=== PATIENT | male | born 1985 | race Caucasian/White ===

== ENCOUNTER 2018-09-29 20:59 | Emergency (ER) | payer OTHER, MEDICAID, SELFPAY ==
[2018-09-29 21:08] VITALS: BP 139/107; PULSE 90; RESP 20; TEMP 36.6; O2SAT 100; BMI 23.0
--- NOTE | 2018-09-29 22:07 | DI.RAD.S_ITS ---
PROCEDURE: XR HAND RT MIN 3V INDICATIONS: deep lacerations, bony involvement? TECHNIQUE: Pre-views of the hand(s) acquired. COMPARISON: None. FINDINGS: Bones: No fractures or dislocations. Carpal bones are normally aligned. No suspicious bony lesions. Soft tissues: No suspicious soft tissue calcifications. Thin curvilinear metallic density foreign body noted in the dorsal and medial soft tissues of the distal left second finger adjacent to the second PIP joint. IMPRESSION: No fracture. No osseous lesion. If symptoms and/or clinical suspicion for pathology persists, further assessment with repeat radiographs (7-10 days) or advanced imaging (e.g. CT, MRI or bone scan) may be helpful. Dictated by: Alona Rodriguez MD, PhD on 09/30/2018 at 9:05 Approved by: Alona Rodriguez MD, PhD on 09/30/2018 at 9:06
[2018-09-29] MEDS: cephALEXin 250 MG PREPACK 1 BOTTLE MISC (22:44)
--- NOTE | 2018-09-29 22:48 | PC.NURSE ---
bulky dressing applied to stitches covering entire hand. Pt tolerated well without complaint. States pain is starting to come back.
[2018-09-29 23:21] VITALS: BP 124/80; PULSE 76; RESP 19; O2SAT 100
--- NOTE | 2018-09-29 23:31 | ED.WOUNDLAC ---
HPI - Wound/Laceration General Chief Complaint: Wound/Laceration Stated Complaint: RT HAND CUT - ALL 4 FINGERS Time Seen by Provider: 09/29/18 21:03 Source: patient and family Mode of arrival: ambulatory Limitations: no limitations History of Present Illness HPI narrative: 33-year-old male smoker, otherwise healthy with current tetanus presents with deep lacerations on the flexor surface 3rd 4th and 5th fingers of his right hand. He was using a brand-new serrated knife and it slipped and cut his hand. He has decreased strength with in the 4th and 5th finger as well as some tingling on the finger pads. His middle finger is also notably weaker he can move it. He denies other injury and is otherwise well and free of complaint Onset (ago): minute(s) Extremity Location: Right: hand Place: home Patient tetanus UTD: Yes Context: accidental Associated symptoms: pain, loss of feeling/numbness and unable to move injured part Treatments prior to arrival: bandage Related Data Previous Rx's Medication Instructions Recorded hydrocodone-acetaminophen [[place]] 1 tab PO QIDP PRN #40 tab 04/07/17 albuterol sulfate [Ventolin HFA] 0 INH SEE INSTRUCTIONS #1 ea 08/26/17 azithromycin [Zithromax Z-Subhash] 0 PO SEE INSTRUCTIONS #6 tab 08/26/17 cephalexin 500 mg PO QID 10 Days #40 cap 09/29/18 Review of Systems Review of Systems ROS Unobtainable: All systems reviewed & are unremarkable except as noted in HPI and below Constitutional Denies chills, Denies fever(s), Denies lethargy and Denies weakness Eyes Denies change in vision, Denies eye discharge, Denies irritation and Denies loss of vision ENT Ears, Nose, Mouth, and Throat: Denies change in voice, Denies neck pain and Denies sore throat Cardiovascular Denies chest pain, Denies irregular heart rhythm, Denies lightheadedness, Denies palpitations, Denies dyspnea, Denies dyspnea on exertion and Denies orthopnea Respiratory Denies cough, Denies dyspnea, Denies dyspnea on exertion and Denies wheezing Gastrointestinal Gastrointestinal: Denies abdominal pain, Denies change in bowel habits, Denies diarrhea, Denies nausea and Denies vomiting Genitourinary Denies hematuria, Denies flank pain, Denies urinary incontinence and Denies urinary urgency Musculoskeletal Reports limited range of motion and Denies neck pain Integumentary/Breasts Denies pruritus, Denies erythema, Denies rash and Reports wounds Neurologic Denies confusion, Denies loss of vision and Denies weakness Psychiatric Denies anxiety, Denies confusion, Denies depression, Denies homicidal ideation and Denies suicidal ideation Endocrine Denies palpitations Hematologic/Lymphatic Denies easy bruising Allergic/Immunologic Denies wheezing PFSH Social History Smoking Status: Current every day smoker Social History Smoking Status: Current every day smoker Exam Narrative Exam Narrative: GENERAL: 33-year-old male visibly upset and obviously uncomfortable HEAD: Atraumatic. Normocephalic. No temporal or scalp tenderness. EYES: Pupils equal round and reactive. Extraocular motions intact. No scleral icterus. No injection or drainage. ENT: Nose without bleeding, purulent drainage or septal hematoma. Throat without erythema, tonsillar hypertrophy or exudate. Uvula midline. Airway patent. NECK: Trachea midline. No JVD or lymphadenopathy. Supple, nontender, no meningeal signs. CARDIOVASCULAR: Regular rate and rhythm without murmurs, gallops, or rubs. RESPIRATORY: Clear to auscultation. Breath sounds equal bilaterally. No wheezes, rales, or rhonchi. GASTROINTESTINAL: Abdomen soft, non-tender, nondistended. No hepato-splenomegaly, or palpable masses. No guarding. EXTREMITIES: Multiple deep lacerations on the volar aspect of 3rd 4th and 5th fingers of right hand. In all scenarios the lacerations are approximately 1.5 cm across and D, they are at or proximal to the DI PE. Fifth finger laceration is viewed in a bloodless field and a complete laceration of flexor tendon is noted. minimal active bleeding. Fourth finger has a very similar wound with dimensions as stated above. Also viewed in a bloodless field and no tendon glide noted. middle fingers much more difficult to view the whole wound but patient still has markedly decreased strength on flexion of the finger No clubbing, cyanosis, or edema. No joint tenderness, effusion, or edema noted. BACK: Nontender without deformity or crepitance. No flank tenderness. NEURO: AOx3. SKIN: No rash or erythema. Initial Vital Signs Initial Vital Signs: Vital Signs Temperature 97.9 F 09/29/18 21:08 Pulse Rate 90 09/29/18 21:08 Respiratory Rate 20 09/29/18 21:08 Blood Pressure 139/107 H 09/29/18 21:08 Pulse Oximetry 100 09/29/18 21:08 Procedures Laceration Repair Laceration 1: Site: hand (fifth finger) Side (If applicable): right Size (cm): 1.5 Description: linear Depth: involves muscle layer and involves tendon Pre-repair: wound explored, irrigated extensively and deep structures intact (tendon lac) Number of sutures: 4 Laceration 2: Site: hand (fourth finger) Side (If applicable): right Size (cm): 1.5 Description: linear Depth: involves muscle layer and involves tendon Pre-repair: wound explored, irrigated extensively and deep structures intact (tendon lac) Skin layer closed with: nylon Size (cm): 5-0 Number of sutures: 4 Laceration 3: Site: hand (middle finger) Side (If applicable): right Size (cm): 1.5 Description: linear Depth: involves muscle layer Pre-repair: wound explored and irrigated extensively Skin layer closed with: nylon Size (cm): 5-0 Number of sutures: 3 Nerve Block Nerve Block 1: Time out performed: No Local Anesthetic: lidocaine 1% and bupivacaine 0.25% Amount of anesthesia used (mL): 3 Side: right Nerve Blocks: digital Procedure Successful: Yes Patient Tolerated Procedure: Well Additional Comments: This same procedure performed on 3rd 4th and 5th fingers of the right hand Orthopedic Splinting/Casting Injury #1: Side: right Upper Extremity Injury Location: hand Upper Extremity Immobilizer: volar splint and finger (other) Post splinting neuro exam: no change Post splinting vascular exam: no change Placed by: Nursing Course Orders Ordered: Discontinued Medications Hydrocodone Bitart/Acetaminophen (Vicodin Prepack) 1 bottle MISC SEEINSTR ONE Stop: 09/29/18 23:36 Last Admin: 09/29/18 23:41 Dose: 1 bottle Cefazolin Sodium (Keflex) 1 bottle MISC SEEINSTR ONE Stop: 09/29/18 22:19 Last Admin: 09/29/18 22:44 Dose: 1 1000units Consultations Consultation #1: call to [facility]. No hand call until at least next week. call to [facility]. Same orthopedist covers hand call to [facility]. No hand call today, but they are available tomorrow call to [facility]. Hand specialist is contacted, happy with our work and will reach out to patient tomorrow for surgery within 5 days. Vital Signs - 8 hr 09/29/18 21:08 09/29/18 23:21 Temperature 97.9 F Pulse Rate 90 76 Respiratory Rate 20 19 Blood Pressure 139/107 H Blood Pressure [Left Arm] 124/80 Pulse Oximetry 100 100 Discharge Plan Departure Patient Disposition: Home Clinical Impression: Flexor tendon laceration of finger with open wound Qualifiers: Encounter type: initial encounter Qualified Code(s): S56.129A - Laceration of flexor muscle, fascia and tendon of unspecified finger at forearm level, initial encounter Discharge Date/Time: 09/29/18 23:50 Interventions: ED Discharge Assessment Last Done: 09/29/18 23:49 Instructions: DI for Finger Flexor Tendon Injury Activity Restrictions/Additional Instructions: *You have been diagnosed with [deep laceration of fingers of the right hand with tendon involvement] *What to do: *Take medications as directed *I spoke with a hand surgeon (Dr. Lewis) about your injury tonight. He said someone from his office will call you tomorrow. If you don't hear from them by lunch you can call the office at [phone]. *Return to ER if you should have any new, worsening or concerning symptoms *Keep your dressing clean and dry Prescriptions: New cephalexin 500 mg capsule 500 mg PO QID 10 Days Qty: 40 RF: 0 No Action hydrocodone-acetaminophen [[place]] 5 MG/325 MG tablet 1 tab PO QIDP PRNQty: 40 RF: 0 azithromycin [Zithromax Z-Subhash] 250 MG tablet PO SEE INSTRUCTIONS Qty: 6 RF: 0 albuterol sulfate [Ventolin HFA] 90 MCG/PUFF HFA aerosol inhaler INH SEE INSTRUCTIONS Qty: 1 RF: 1
--- NOTE | 2018-09-29 23:34 | ED_ITS ---
HPI - Wound/Laceration General Chief Complaint: Wound/Laceration Stated Complaint: RT HAND CUT - ALL 4 FINGERS Time Seen by Provider: 09/29/18 21:03 Source: patient and family Mode of arrival: ambulatory Limitations: no limitations History of Present Illness HPI narrative: 33-year-old male smoker, otherwise healthy with current tetanus presents with deep lacerations on the flexor surface 3rd 4th and 5th fingers of his right hand. He was using a brand-new serrated knife and it slipped and cut his hand. He has decreased strength with in the 4th and 5th finger as well as some tingling on the finger pads. His middle finger is also notably weaker he can move it. He denies other injury and is otherwise well and free of complaint Onset (ago): minute(s) Extremity Location: Right: hand Place: home Patient tetanus UTD: Yes Context: accidental Associated symptoms: pain, loss of feeling/numbness and unable to move injured part Treatments prior to arrival: bandage Related Data Previous Rx's Medication Instructions Recorded hydrocodone-acetaminophen [[place]] 1 tab PO QIDP PRN #40 tab 04/07/17 albuterol sulfate [Ventolin HFA] 0 INH SEE INSTRUCTIONS #1 ea 08/26/17 azithromycin [Zithromax Z-Subhash] 0 PO SEE INSTRUCTIONS #6 tab 08/26/17 cephalexin 500 mg PO QID 10 Days #40 cap 09/29/18 Review of Systems Review of Systems ROS Unobtainable: All systems reviewed & are unremarkable except as noted in HPI and below Constitutional Denies chills, Denies fever(s), Denies lethargy and Denies weakness Eyes Denies change in vision, Denies eye discharge, Denies irritation and Denies loss of vision ENT Ears, Nose, Mouth, and Throat: Denies change in voice, Denies neck pain and Denies sore throat Cardiovascular Denies chest pain, Denies irregular heart rhythm, Denies lightheadedness, Denies palpitations, Denies dyspnea, Denies dyspnea on exertion and Denies orthopnea Respiratory Denies cough, Denies dyspnea, Denies dyspnea on exertion and Denies wheezing Gastrointestinal Gastrointestinal: Denies abdominal pain, Denies change in bowel habits, Denies diarrhea, Denies nausea and Denies vomiting Genitourinary Denies hematuria, Denies flank pain, Denies urinary incontinence and Denies urinary urgency Musculoskeletal Reports limited range of motion and Denies neck pain Integumentary/Breasts Denies pruritus, Denies erythema, Denies rash and Reports wounds Neurologic Denies confusion, Denies loss of vision and Denies weakness Psychiatric Denies anxiety, Denies confusion, Denies depression, Denies homicidal ideation and Denies suicidal ideation Endocrine Denies palpitations Hematologic/Lymphatic Denies easy bruising Allergic/Immunologic Denies wheezing PFSH Social History Smoking Status: Current every day smoker Social History Smoking Status: Current every day smoker Exam Narrative Exam Narrative: GENERAL: 33-year-old male visibly upset and obviously uncomfortable HEAD: Atraumatic. Normocephalic. No temporal or scalp tenderness. EYES: Pupils equal round and reactive. Extraocular motions intact. No scleral icterus. No injection or drainage. ENT: Nose without bleeding, purulent drainage or septal hematoma. Throat without erythema, tonsillar hypertrophy or exudate. Uvula midline. Airway patent. NECK: Trachea midline. No JVD or lymphadenopathy. Supple, nontender, no meningeal signs. CARDIOVASCULAR: Regular rate and rhythm without murmurs, gallops, or rubs. RESPIRATORY: Clear to auscultation. Breath sounds equal bilaterally. No wheezes, rales, or rhonchi. GASTROINTESTINAL: Abdomen soft, non-tender, nondistended. No hepato- splenomegaly, or palpable masses. No guarding. EXTREMITIES: Multiple deep lacerations on the volar aspect of 3rd 4th and 5th fingers of right hand. In all scenarios the lacerations are approximately 1.5 cm across and D, they are at or proximal to the DI PE. Fifth finger laceration is viewed in a bloodless field and a complete laceration of flexor tendon is noted. minimal active bleeding. Fourth finger has a very similar wound with dimensions as stated above. Also viewed in a bloodless field and no tendon glide noted. middle fingers much more difficult to view the whole wound but patient still has markedly decreased strength on flexion of the finger No clubbi ng, cyanosis, or edema. No joint tenderness, effusion, or edema noted. BACK: Nontender without deformity or crepitance. No flank tenderness. NEURO: AOx3. SKIN: No rash or erythema. Initial Vital Signs Initial Vital Signs: Vital Signs Temperature 97.9 F 09/29/18 21:08 Pulse Rate 90 09/29/18 21:08 Respiratory Rate 20 09/29/18 21:08 Blood Pressure 139/107 H 09/29/18 21:08 Pulse Oximetry 100 09/29/18 21:08 Procedures Laceration Repair Laceration 1: Site: hand (fifth finger) Side (If applicable): right Size (cm): 1.5 Description: linear Depth: involves muscle layer and involves tendon Pre-repair: wound explored, irrigated extensively and deep structures intact (tendon lac) Number of sutures: 4 Laceration 2: Site: hand (fourth finger) Side (If applicable): right Size (cm): 1.5 Description: linear Depth: involves muscle layer and involves tendon Pre-repair: wound explored, irrigated extensively and deep structures intact (tendon lac) Skin layer closed with: nylon Size (cm): 5-0 Number of sutures: 4 Laceration 3: Site: hand (middle finger) Side (If applicable): right Size (cm): 1.5 Description: linear Depth: involves muscle layer Pre-repair: wound explored and irrigated extensively Skin layer closed with: nylon Size (cm): 5-0 Number of sutures: 3 Nerve Block Nerve Block 1: Time out performed: No Local Anesthetic: lidocaine 1% and bupivacaine 0.25% Amount of anesthesia used (mL): 3 Side: right Nerve Blocks: digital Procedure Successful: Yes Patient Tolerated Procedure: Well Additional Comments: This same procedure performed on 3rd 4th and 5th fingers of the right hand Orthopedic Splinting/Casting Injury #1: Side: right Upper Extremity Injury Location: hand Upper Extremity Immobilizer: volar splint and finger (other) Post splinting neuro exam: no change Post splinting vascular exam: no change Placed by: Nursing Course Orders Ordered: Discontinued Medications Hydrocodone Bitart/Acetaminophen (Vicodin Prepack) 1 bottle MISC SEEINSTR ONE Stop: 09/29/18 23:36 Last Admin: 09/29/18 23:41 Dose: 1 bottle Cefazolin Sodium (Keflex) 1 bottle MISC SEEINSTR ONE Stop: 09/29/18 22:19 Last Admin: 09/29/18 22:44 Dose: 1 1000units Consultations Consultation #1: call to [facility]. No hand call until at least next week. call to [facility]. Same orthopedist covers hand call to [facility]. No hand call today, but they are available tomorrow call to [facility]. Hand specialist is contacted, happy with our work and will reach out to patient tomorrow for surgery within 5 days. Vital Signs - 8 hr 09/29/18 21:08 09/29/18 23:21 Temperature 97.9 F Pulse Rate 90 76 Respiratory Rate 20 19 Blood Pressure 139/107 H Blood Pressure [Left Arm] 124/80 Pulse Oximetry 100 100 Discharge Plan Departure Patient Disposition: Home Clinical Impression: Flexor tendon laceration of finger with open wound Qualifiers: Encounter type: initial encounter Qualified Code(s): S56.129A - Laceration of flexor muscle, fascia and tendon of unspecified finger at forearm level, initial encounter Discharge Date/Time: 09/29/18 23:50 Interventions: ED Discharge Assessment Last Done: 09/29/18 23:49 Instructions: DI for Finger Flexor Tendon Injury Activity Restrictions/Additional Instructions: *You have been diagnosed with [deep laceration of fingers of the right hand with tendon involvement] *What to do: *Take medications as directed *I spoke with a hand surgeon (Dr. Lewis) about your injury tonight. He said someone from his office will call you tomorrow. If you don't hear from them by lunch you can call the office at [phone]. *Return to ER if you should have any new, worsening or concerning symptoms *Keep your dressing clean and dry Prescriptions: New cephalexin 500 mg capsule 500 mg PO QID 10 Days Qty: 40 RF: 0 No Action hydrocodone-acetaminophen [[place]] 5 MG/325 MG tablet 1 tab PO QIDP PRNQty: 40 RF: 0 azithromycin [Zithromax Z-Sbuhash] 250 MG tablet PO SEE INSTRUCTIONS Qty: 6 RF: 0 albuterol sulfate [Ventolin HFA] 90 MCG/PUFF HFA aerosol inhaler INH SEE INSTRUCTIONS Qty: 1 RF: 1
[2018-09-29] MEDS: HYDROCODONE/ACET 5/325 PREPACK 1 BOTTLE MISC (23:41)
--- NOTE | 2018-09-30 19:16 | PC.NURSE ---
Pt had deep lacerations on volar 3rd,4th,5th fingers of right hand. all approx 1.5 cm. Pt having difficulty with flexion of all fingers
== END 2018-09-29 23:50 | disposition home or self-care (01) ==
PROVIDERS: Emergency Provider Emergency Medicine
DX: S56.123A Laceration of flexor muscle, fascia and tendon of right middle finger at forearm level, initial encounter (principal); S56.125A Laceration of flexor muscle, fascia and tendon of right ring finger at forearm level, initial encounter; S56.127A Laceration of flexor muscle, fascia and tendon of right little finger at forearm level, initial encounter; W26.0XXA Contact with knife, initial encounter
CPT/HCPCS: 12042; 64450; 73130; 99283; 99285

== ENCOUNTER → 2022-06-11 14:04 | Outpatient (CLI) | payer OTHER, MEDICAID, SELFPAY ==
--- NOTE | 2022-06-11 14:06 | DI.RAD.S_ITS ---
PROCEDURE: XR FINGER LT MIN 2V INDICATIONS: finger injury with deformity TECHNIQUE: AP hand, 2 views of the 5th finger(s) acquired. COMPARISON: [facility], CR, FINGER RT, 07/03/2015, 14:06. FINDINGS: Bones: No fractures or dislocations. No suspicious bony lesions. Fifth finger PIP flexion and DIP extension. No underlying osseous lesion Soft tissues: No suspicious soft tissue calcifications. IMPRESSION: [place]-neck deformity of the 5th finger Approved by: Truong Harrell M.D. on 06/11/2022 at 18:04
== END ==
PROVIDERS: PCP Family Medicine; Referring Provider Family Medicine; Visit Provider Family Medicine
DX: M20.032 Swan-neck deformity of left finger(s) (principal)
CPT/HCPCS: 73140

== ENCOUNTER → 2024-03-21 11:13 | Outpatient (CLI) | payer OTHER, MEDICAID, SELFPAY ==
--- NOTE | 2024-03-21 11:15 | DI.RAD.S_ITS ---
PROCEDURE: XR LUMBAR SPINE 2-3V INDICATIONS: lower back pain TECHNIQUE: 3 views of the lumbar spine were acquired. COMPARISON: None. FINDINGS: Bones: Mild dextroscoliosis of the lumbar spine. Straightening of the lumbar spine. Vertebral body heights are well-maintained. Multilevel degenerative disease of the lumbar spine, most pronounced and moderate at L1-2. Mild lower lumbar facet arthropathy. Soft tissues: Overlying bowel gas pattern is normal. No suspicious soft tissue calcifications. IMPRESSION: Degenerative changes as described above. Dictated by: Hayde Grossman M.D. on 03/21/2024 at 14:36 Approved by: Hayde Grossman M.D. on 03/21/2024 at 14:38
== END ==
LOC: RAD 11:14
PROVIDERS: PCP Family Medicine; Referring Provider Family Medicine; Visit Provider Family Medicine
DX: M51.16 Intervertebral disc disorders with radiculopathy, lumbar region (principal); M47.26 Other spondylosis with radiculopathy, lumbar region
CPT/HCPCS: 72100

== ENCOUNTER 2024-06-07 08:15 | Outpatient (RCR) | payer OTHER, MEDICAID, SELFPAY ==
--- NOTE | 2024-04-10 15:52 | PT.OIE ---
Current Diagnoses Stiffness of right hip, not elsewhere classified (04/10/24) Stiffness of left hip, not elsewhere classified (04/10/24) Radiculopathy, lumbar region (04/10/24) Low back pain, unspecified (04/10/24) Weakness (04/10/24) Visit Care Team Role Provider Type Lex Ramirez MD Attending Provider Physician Family Provider Primary Care Provider Referring Provider Specialty: Family Practice Address: [address] [place] [address], [address], [facility] Email: [email or web address] Physical Therapy Initial Evaluation PT-OP-A Visit Information Start: 04/07/24 11:03 Freq: Status: Active Protocol: Document 04/10/24 09:04 NM (Rec: 04/10/24 09:49 NM [id number]) Out-Patient Physical Therapy Visit Information Visit Information Visit Type Initial Evaluation Visit Note 24 visits max Visit Start Time 09:05 Visit Stop Time 09:52 Visit Number 06/23 Evaluation Information Evaluation Date 04/10/24 PT-OP-B Current Condition Start: 04/07/24 11:03 Freq: Status: Active Protocol: Document 04/10/24 09:04 NM (Rec: 04/10/24 09:49 NM [id number]) Current Condition History of Current Condition Current Complaints pain, difficulty w/ mobility and transfers History of Current Condition Pt presents iwth low back pain , radiates into RLE. He has had this before 1-2x in past several years ago, but this is worst episode. He got imaging performed, and doctor thinks DDD. Pt reports that his back has been bothering him for 1.5 months. Denies JAXSON, states slow onset. 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 He has a lot of variation between difficulty getting around to no difficulty with walking; demos strong forward trunk flexion pattern. Pt reports that 20 years ago, his initial JAXSON was lifting a wood stove. He has done several home stretching to help. However, reports that it takes a while to heal (4 months) but just a long time. 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 He has pain with straightening his leg R (and L), low back ext in sitting and standing. Prior Treatments and Tests Lumbar spine x ray 02/2024- impression: degenerative changes as described above ( mild dextroscoliosis of lumbar spine, straightening of lumbar spine, vertebral body heights well maintained, multilevel degenerative disease of the lumbar spine most pronounced at L1-2, mild lower lumbar facet arthropathy ) PT-OP-C Subjective Start: 04/07/24 11:03 Freq: Status: Active Protocol: Document 04/10/24 09:04 NM (Rec: 04/10/24 09:49 NM [id number]) OP-PT Subjective Patient Comments Patient Comments Pt consents to participate in evaluation Patient Questionnaires Oswestry Low Back Index Oswestry Score 42/100 OP-PT Pain Assessment Location lumbar spine Pain Location Details low lumbar spine R sided Scale Used Numeric (0 - 10) Description Aching,Dull,Spasm Description- Other range 4-9 Radiating Location R buttock and HS, partial calf (prev to foot) Variations/Patterns cramps and muscle spasms Pain Aggravating Factors Position,Changing Position, Standing,Sitting,Walking, Bending,Lifting Other Pain Aggravating Factors pain w/ ext, postural straightening PT-OP-F Manual Assessment Start: 04/07/24 11:03 Freq: Status: Active Protocol: Document 04/10/24 09:04 NM (Rec: 04/10/24 09:49 NM [id number]) Manual Assessments Soft Tissue Assessment Soft Tissue Mobility Assessment Hypertrophy of B lumbar paraspinals and glutes, tenderness to palpation Joint Mobility Assessment Joint Mobility Assessment Hypomobility of thoracic and lumbar spine especially with PA springing of lower lumbar spine and R PSIS, also tender Mild curves of thoracic and lumbar spine to R side PT-OP-G Mobility & Gait Start: 04/07/24 11:03 Freq: Status: Active Protocol: Document 04/10/24 09:04 NM (Rec: 04/10/24 17:07 NM [id number]) OP Gait Assessment Gait Gait Assistance Required: Standby Assistance Distance (Feet) 150 Gait Deviations General Gait Pattern Antalgic,Flexed Trunk,Lateral Trunk Lean,Narrow Based Gait Factors Limiting Gait Function Factors Limiting Gait Function Decreased Activity Tolerance, Decreased Sensation,Decreased Strength,Limited Range of Motion,Pain Comments Gait Comments Pt demos increased trunk flexion with slight R sided lean with gait. Antalgic especially with advancing and extending RLE PT-OP-H Neuro Start: 04/07/24 11:03 Freq: Status: Active Protocol: Document 04/10/24 09:04 NM (Rec: 04/10/24 17:07 NM [id number]) Sensation Evaluation Comments Summary Comments Assess next session PT-OP-J Posture/Palpation/Skin Start: 04/07/24 11:03 Freq: Status: Active Protocol: Document 04/10/24 09:04 NM (Rec: 04/10/24 17:07 NM [id number]) Posture Evaluation Position Standing Head/C-Spine Posture Forward Head L-Spine Posture Flattened,Decreased Lordosis, Fixed Scoliosis on (R) Shoulder Posture (L) Rounded,(R) Rounded Pelvis Posture Posterior Tilted,(R) Rotated Anterior,(R) Iliac Crest Superior Weight Distribution Weight Shifted Left Knee Posture (L) Genu Valgus,(R) Genu Valgus Comments Posture Comments Pain with truncal extension. Demos elevation of R pelvis and L lateral trunk shift Palpation Assessment Location lumbar spine Palpation Details Tenderness along lower lumbar spine R>L, midline and transverse processes; tenderness along R SIJ/PSIS, worse with PA springing of R SIJ PT-OP-K Range of Motion Start: 04/07/24 11:03 Freq: Status: Active Protocol: Document 04/10/24 09:04 NM (Rec: 04/10/24 09:49 NM [id number]) Lumbar Spine Range of Motion Lumbar Spine Active Percentage Flexion 75 Extension 10 Rotation Left 50 Rotation Right 50 Lateral Flexion Left 100 Lateral Flexion Right 100 Comments pain with ext, R LF Hip Goniometric Range of Motion Hip right Internal Rotation 28 External Rotation 28 left Internal Rotation 28 External Rotation 40 PT-OP-L Special Tests Start: 04/07/24 11:03 Freq: Status: Active Protocol: Document 04/10/24 09:04 NM (Rec: 04/10/24 09:49 NM [id number]) Special Tests Lumbar Spine Special Tests Slump Test Results + Comments also pain on R side w/ L test Straight Leg Raise Test Results + Comments also pain in R side w/ L test distraction Test Results + Comments mild relief but no change symptoms in RLE katz/quadrant Test Results + Comments R sided PT-OP-M Strength Start: 04/07/24 11:03 Freq: Status: Active Protocol: Document 04/10/24 09:04 NM (Rec: 04/10/24 09:49 NM [id number]) Trunk Strength Trunk Manual Muscle Testing Flexion 3 Fair Extension 3 Fair Rotation Left 3 Fair Rotation Right 3 Fair Lateral Flexion Left 3 Fair Lateral Flexion Right 3 Fair Comments pain with resisted testing Hip Strength Hip Manual Muscle Testing Right Flexion (L2) 4 Good Extension (S1) 4- Good- Abduction 4- Good- Adduction 4 Good External Rotation 4 Good Internal Rotation 4 Good Left Flexion (L2) 4 Good Extension (S1) 4- Good- Abduction 4- Good- Adduction 4 Good External Rotation 4 Good Internal Rotation 4 Good Knee Strength Knee Manual Muscle Testing Right Flexion (S2) 4 Good Extension (L3) 4 Good Left Flexion (S2) 4 Good Extension (L3) 4 Good Ankle/Foot Strength Ankle and Foot Manual Muscle Testing Right Dorsiflexion (L4) 4 Good Plantarflexion (S1) 4 Good Comments tested in sitting Left Dorsiflexion (L4) 4 Good Plantarflexion (S1) 4 Good Comments tested in sitting PT-OP-Q Treatments Start: 04/07/24 11:03 Freq: Status: Active Protocol: Document 04/10/24 09:04 NM (Rec: 04/10/24 17:07 NM [id number]) Therapeutic Activity Therapeutic Activity log roll Reps/Minutes 1 reps Comments Cueing for correct execution, especially to maintain neutral spine and to avoid twisting spine. Recommended block hips/ shoulders to avoid segmental motion. Issued handout for correct mechanics on/off bed disc hydrostatic management Name with gentle traction Reps/Minutes 10 minutes total Comments 1. sidelying traction - positioned in L sidelying with R side up; pillows under head , between legs, and under side to open facets 2. supine lumbar traction - position in supine with bolster under feet Education on anatomy and rationale diaphragmatic breathing Comments During supine positioning with gentle lumbar traction. Education on rationale. Self tactile cueing along abdomen and thoracic sears Self-Care/Home Management Treatment Education Patient Education Home Exercise Program,Joint Protection,Pain Management Other Education Brief education on pain neuroscience, use of strategies to facilitate parasympathetic nervous system activation Pt asked if safe to work due to pain. PT recommended that pt defer to PCP for return to work questions and accommodations if needed for work but educated that increased standing and prolonged positions if needed for work tasks will likely exacerbate symptoms d/t current exacerbation under same conditions PT-OP-T Assessment and Plan Start: 04/07/24 11:03 Freq: Status: Active Protocol: Document 04/10/24 09:04 NM (Rec: 04/10/24 09:49 NM [id number]) Physical Therapy Assessment Rehab Potential Rehabilitation Potential Fair Evaluation Complexity Number of Personal Factors/Comorbidities 1-2 Number of Body Systems Impaired 1-2 Clinical Presentation at Evaluation Stable Impairments Impairments Activity Tolerance,Balance, Functional Activities, Functional Mobility,Gait,Pain, Posture,ROM,Sensation,Soft Tissue Mobility,Strength, Transfers Other Concerns Age Related Concerns 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 PMH: back pain and hx, surgery (R flexor tendon surgery) Goals Four Impairment trunk MMT 3/5 globally w/ pain Short Term Goal (STG) Pt will improve global trunk strength to at least 4/5 MMT in order to demonstrate increased trunk stabilization and strength for work-related tasks and ADLs STG Duration 8 weeks Agile Scrum Master Goal (LTG) Pt will be educated on body mechanics with lifting and demonstrate core bracing while lifting small loads for at least 5/10 reps without cueing and back pain <5/10 in order to demonstrate improved strength for work-related tasks and ADLs LTG Duration 12 weeks Three Impairment JOHN 42% impaired w/ ADLs/work tasks Intermediate Goal (LTG) Pt will improve JOHN impairment to <25% in order to demonstrate improvements in sitting, standing, ambulation, and lifting tolerance LTG Duration 12 weeks Two Impairment trunk ROM impaired d/t pain Short Term Goal (STG) Pt will improve trunk flexion AROM > 75% without increase in low back pain in order to be able to pick objects from floor and lift objects for work STG Duration 8 weeks Intermediate Goal (LTG) Pt will be able to stand erect with back pain <5/10 during work tasks in order to demonstrate improved symptom management and trunk ROM LTG Duration 12 weeks One Impairment not performing HEP Agile Scrum Master Goal (LTG) Pt will be IND with HEP at least 3x/wk in order to maximize progression with PT and transition to maintenance program upon discharge LTG Duration 12 weeks Assessment Summary Assessment Pt is a 39 y.o. presenting with acute onset of low back pain that has gradually been worsening. Pt has radicular symptoms into RLE to thigh, previously to calf. Pt has a hx of low back pain with radicular symptoms episodically for several years . Pt's symptoms are reproduced with compression, slump and straight leg raise/crossed straight leg raise, in addition to trunk AROM into flex/ext/lateral flexion and resisted trunk/hip testing; extension is most provocative position. Pt has a strong flexion bias with posture and activities. Pt's symptoms and exam findings are most consistent with disc pathology with radicular symptoms, and he also has symptoms that are indicative of facet pathology. PT educated pt on exam findings, plan of care, and positioning for improved symptom management. If pt does not progress with PT, then would more advanced imaging and further assessment by division operations specialist may be indicated. Pt would benefit from skilled PT for progressive spinal mobility and strengthening in order to improve symptom management in order to improve ability to perform ADLs/IADLs, increase functional mobility, and improve symptom management. Physical Therapy Plan Frequency and Duration Frequency of Treatment 2x/Week Duration of treatment (weeks) 12 Plan of Care Start Date 04/10/24 Plan of Care End Date 07/07/24 Therapeutic Interventions Therapeutic Interventions Balance Training,Gait Training ,Home Exercise Program,Joint Mobilizations,Manual Therapy, Neuromuscular Re-education, Orthotic/Prosthetic Management ,Patient/Caregiver Education, Self-Care/Home Management, Sensory Integration,Soft Tissue Mobilization,Taping, Therapeutic Activities, Therapeutic Exercises Modalities Cold Pack/Ice Massage,Electric Stimulation,Hot Packs, Traction- Mechanical, Ultrasound Next Visit Focus/Plan Next Note Type Treatment Note Next Visit Plan Assess sensation and reflexes. Initiate HEP with gentle stretching, nerve glides, and hip/back strengthening. Manual therapy: STM to lumbar spine, RLE, glutes/HS, gentle distraction mobilizations and offloading; can trial dallison 's manuever
--- NOTE | 2024-04-14 09:05 | PT.OTN ---
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 He has had this before 1-2x in past several years ago, but this is worst episode. He got imaging performed, and doctor thinks DDD. Pt reports that his back has been bothering him for 1.5 months. Denies JAXSON, states slow onset. 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 He has a lot of variation between difficulty getting around to no difficulty with walking; demos strong forward trunk flexion pattern. Pt reports that 20 years ago, his initial JAXSON was lifting a wood stove. He has done several home stretching to help. However, reports that it takes a while to heal (4 months) but just a long time. 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 He has pain with straightening his leg R (and L), low back ext in sitting and standing. Prior Treatments and Tests Lumbar spine x ray 02/2024- impression: degenerative changes as described above ( mild dextroscoliosis of lumbar spine, straightening of lumbar spine, vertebral body heights well maintained, multilevel degenerative disease of the lumbar spine most pronounced at L1-2, mild lower lumbar facet arthropathy ) PT-OP-C Subjective Start: 04/07/24 11:03 Freq: Status: Active Protocol: Document 04/14/24 08:15 SP (Rec: 04/14/24 09:07 SP [id number]) OP-PT Subjective Patient Comments Patient Comments Pt stated not worse pain after initial visit. Sleeps with pillow between knees side sleeping and under thighs and behind back in suping for back comfort. Stopped taking antiinflammorty due to no relief. Has 65cm tball home. PT-OP-F Manual Assessment Start: 04/07/24 11:03 Freq: Status: Active Protocol: Document 04/10/24 09:04 NM (Rec: 04/10/24 09:49 NM [id number]) Manual Assessments Soft Tissue Assessment Soft Tissue Mobility Assessment Hypertrophy of B lumbar paraspinals and glutes, tenderness to palpation Joint Mobility Assessment Joint Mobility Assessment Hypomobility of thoracic and lumbar spine especially with PA springing of lower lumbar spine and R PSIS, also tender Mild curves of thoracic and lumbar spine to R side PT-OP-G Mobility & Gait Start: 04/07/24 11:03 Freq: Status: Active Protocol: Document 04/10/24 09:04 NM (Rec: 04/10/24 17:07 NM [id number]) OP Gait Assessment Gait Gait Assistance Required: Standby Assistance Distance (Feet) 150 Gait Deviations General Gait Pattern Antalgic,Flexed Trunk,Lateral Trunk Lean,Narrow Based Gait Factors Limiting Gait Function Factors Limiting Gait Function Decreased Activity Tolerance, Decreased Sensation,Decreased Strength,Limited Range of Motion,Pain Comments Gait Comments Pt demos increased trunk flexion with slight R sided lean with gait. Antalgic especially with advancing and extending RLE PT-OP-H Neuro Start: 04/07/24 11:03 Freq: Status: Active Protocol: Document 04/10/24 09:04 NM (Rec: 04/10/24 17:07 NM [id number]) Sensation Evaluation Comments Summary Comments Assess next session PT-OP-J Posture/Palpation/Skin Start: 04/07/24 11:03 Freq: Status: Active Protocol: Document 04/10/24 09:04 NM (Rec: 04/10/24 17:07 NM [id number]) Posture Evaluation Position Standing Head/C-Spine Posture Forward Head L-Spine Posture Flattened,Decreased Lordosis, Fixed Scoliosis on (R) Shoulder Posture (L) Rounded,(R) Rounded Pelvis Posture Posterior Tilted,(R) Rotated Anterior,(R) Iliac Crest Superior Weight Distribution Weight Shifted Left Knee Posture (L) Genu Valgus,(R) Genu Valgus Comments Posture Comments Pain with truncal extension. Demos elevation of R pelvis and L lateral trunk shift Palpation Assessment Location lumbar spine Palpation Details Tenderness along lower lumbar spine R>L, midline and transverse processes; tenderness along R SIJ/PSIS, worse with PA springing of R SIJ PT-OP-K Range of Motion Start: 04/07/24 11:03 Freq: Status: Active Protocol: Document 04/10/24 09:04 NM (Rec: 04/10/24 09:49 NM [id number]) Lumbar Spine Range of Motion Lumbar Spine Active Percentage Flexion 75 Extension 10 Rotation Left 50 Rotation Right 50 Lateral Flexion Left 100 Lateral Flexion Right 100 Comments pain with ext, R LF Hip Goniometric Range of Motion Hip right Internal Rotation 28 External Rotation 28 left Internal Rotation 28 External Rotation 40 PT-OP-L Special Tests Start: 04/07/24 11:03 Freq: Status: Active Protocol: Document 04/10/24 09:04 NM (Rec: 04/10/24 09:49 NM [id number]) Special Tests Lumbar Spine Special Tests Slump Test Results + Comments also pain on R side w/ L test Straight Leg Raise Test Results + Comments also pain in R side w/ L test distraction Test Results + Comments mild relief but no change symptoms in RLE katz/quadrant Test Results + Comments R sided PT-OP-M Strength Start: 04/07/24 11:03 Freq: Status: Active Protocol: Document 04/10/24 09:04 NM (Rec: 04/10/24 09:49 NM [id number]) Trunk Strength Trunk Manual Muscle Testing Flexion 3 Fair Extension 3 Fair Rotation Left 3 Fair Rotation Right 3 Fair Lateral Flexion Left 3 Fair Lateral Flexion Right 3 Fair Comments pain with resisted testing Hip Strength Hip Manual Muscle Testing Right Flexion (L2) 4 Good Extension (S1) 4- Good- Abduction 4- Good- Adduction 4 Good External Rotation 4 Good Internal Rotation 4 Good Left Flexion (L2) 4 Good Extension (S1) 4- Good- Abduction 4- Good- Adduction 4 Good External Rotation 4 Good Internal Rotation 4 Good Knee Strength Knee Manual Muscle Testing Right Flexion (S2) 4 Good Extension (L3) 4 Good Left Flexion (S2) 4 Good Extension (L3) 4 Good Ankle/Foot Strength Ankle and Foot Manual Muscle Testing Right Dorsiflexion (L4) 4 Good Plantarflexion (S1) 4 Good Comments tested in sitting Left Dorsiflexion (L4) 4 Good Plantarflexion (S1) 4 Good Comments tested in sitting PT-OP-Q Treatments Start: 04/07/24 11:03 Freq: Status: Active Protocol: Document 04/14/24 08:15 SP (Rec: 04/14/24 09:07 SP [id number]) Therapeutic Exercises Supine Exercises sciatic nerve glide /c AP Supine Exercise Name added to HEP /c HO Resistance 1st grasp behind thigh- at first ok then rad pain down Post R leg- stopped Equipment Used BLEs on 65cm tball, knee ext slade then AP- no radicular symptoms Reps/Minutes 2 sets 10 AP Comments Modified BLEs on tball pnfree LTR Supine Exercise Name added to HEP /c HO Side bilateral Resistance BLEs on 65cm tball Reps/Minutes x10 reps each side 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 tolerated pnfree- good response Piriformis stretch /c Lateral trunk Rot L Supine Exercise Name added to HEP (dallison's manuever) /c HO Side right Resistance R ankle over L thigh, leg support on 65 cm tball Equipment Used towel supporting bent L knee and ball roll to L Reps/Minutes 10 SH x5 reps in PT Comments reports pnfree in R LB/hip Therapeutic Activity Therapeutic Activity diaphragmatic breathing Comments During supine positioning: ed neutral spine and anatomy of ribcage for back support during breath improved mobility, self tactile cueing along abdomen and thoracic sears during ther ex, slow pacing breath. Manual Therapy Treatment Consent Patient gave verbal consent for manual Yes treatment Soft Tissue Mobilization trunk Body Location B ES (SL) , QL, Psoas, Iliacus Mobilization Type Rolling,Sustained Pressure Body Position Hooklying Comments STMs, sustained pressure with breath LEs Body Location B Piriformis, TFL, HS Mobilization Type Rolling Body Position Sidelying Comments STMs Self-Care/Home Management Treatment Education Patient Education Home Exercise Program,Joint Protection,Pain Management Other Education Brief education on pain neuroscience, use of strategies to facilitate parasympathetic nervous system activation diaphramatic breathing and hooklying support BLEs on tball, anatomy of ribcage for back support during breath improved mobility. Performing positions that doesn't produce radicular symptoms. PT-OP-T Assessment and Plan Start: 04/07/24 11:03 Freq: Status: Active Protocol: Document 04/14/24 08:15 SP (Rec: 04/14/24 09:07 SP [id number]) Physical Therapy Assessment Goals Four Impairment trunk MMT 3/5 globally w/ pain Short Term Goal (STG) Pt will improve global trunk strength to at least 4/5 MMT in order to demonstrate increased trunk stabilization and strength for work-related tasks and ADLs STG Duration 8 weeks Alf Goal (LTG) Pt will be educated on body mechanics with lifting and demonstrate core bracing while lifting small loads for at least 5/10 reps without cueing and back pain <5/10 in order to demonstrate improved strength for work-related tasks and ADLs LTG Duration 12 weeks Three Impairment JOHN 42% impaired w/ ADLs/work tasks Mask 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 Goal (LTG) Pt will improve JOHN impairment to <25% in order to demonstrate improvements in sitting, standing, ambulation, and lifting tolerance LTG Duration 12 weeks Two Impairment trunk ROM impaired d/t pain Short Term Goal (STG) Pt will improve trunk flexion AROM > 75% without increase in low back pain in order to be able to pick objects from floor and lift objects for work STG Duration 8 weeks Alf Goal (LTG) Pt will be able to stand erect with back pain <5/10 during work tasks in order to demonstrate improved symptom management and trunk ROM LTG Duration 12 weeks One Impairment not performing HEP Mask 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 Goal (LTG) Pt will be IND with HEP at least 3x/wk in order to maximize progression with PT and transition to maintenance program upon discharge LTG Duration 12 weeks Assessment Summary Assessment Pt decreased radicular symptoms into RLE with legs supported on 65cm tball (has home) during ther ex mobililty for HEP /c HOs. Cues for neutral spine with continued diaphramatic breathing support verbalized better understanding how supports lowering back pain. Decreased radicular symptoms with modiified ther ex with Tball support. Physical Therapy Plan Frequency and Duration Frequency of Treatment 2x/Week Duration of treatment (weeks) 12 Plan of Care Start Date 04/10/24 Plan of Care End Date 07/07/24 Therapeutic Interventions Therapeutic Interventions Balance Training,Gait Training ,Home Exercise Program,Joint Mobilizations,Manual Therapy, Neuromuscular Re-education, Orthotic/Prosthetic Management ,Patient/Caregiver Education, Self-Care/Home Management, Sensory Integration,Soft Tissue Mobilization,Taping, Therapeutic Activities, Therapeutic Exercises Modalities Cold Pack/Ice Massage,Electric Stimulation,Hot Packs, Traction- Mechanical, Ultrasound Next Visit Focus/Plan Next Note Type Treatment Note Next Visit Plan Assess sensation and reflexes. Initiate HEP with gentle stretching, nerve glides check BLEs on tball, and hip/back strengthening. Manual therapy: STM to lumbar spine, RLE, glutes/HS, gentle distraction mobilizations and offloading; can trial dallison's manuever
--- NOTE | 2024-04-17 15:09 | PT.OTN ---
Current Diagnoses Stiffness of right hip, not elsewhere classified (04/17/24) Stiffness of left hip, not elsewhere classified (04/17/24) Radiculopathy, lumbar region (04/17/24) Low back pain, unspecified (04/17/24) Weakness (04/17/24) Physical Therapy Treatment Note PT-OP-A Visit Information Start: 04/07/24 11:03 Freq: Status: Active Protocol: Document 04/17/24 12:59 NM (Rec: 04/17/24 13:49 NM [id number]) Out-Patient Physical Therapy Visit Information Visit Information Visit Type Treatment Note Visit Note 24 visits max Visit Start Time 13:05 Visit Stop Time 13:50 Visit Number 08/21 Evaluation Information Evaluation Date 04/10/24 PT-OP-B Current Condition Start: 04/07/24 11:03 Freq: Status: Active Protocol: Document 04/10/24 09:04 NM (Rec: 04/10/24 09:49 NM [id number]) Current Condition History of Current Condition Current Complaints pain, difficulty w/ mobility and transfers History of Current Condition Pt presents iwth low back pain , radiates into RLE. He has had this before 1-2x in past several years ago, but this is worst episode. He got imaging performed, and doctor thinks DDD. Pt reports that his back has been bothering him for 1.5 months. Denies JAXSON, states slow onset. 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 He has a lot of variation between difficulty getting around to no difficulty with walking; demos strong forward trunk flexion pattern. Pt reports that 20 years ago, his initial JAXSON was lifting a wood stove. He has done several home stretching to help. However, reports that it takes a while to heal (4 months) but just a long time. 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 He has pain with straightening his leg R (and L), low back ext in sitting and standing. Prior Treatments and Tests Lumbar spine x ray 02/2024- impression: degenerative changes as described above ( mild dextroscoliosis of lumbar spine, straightening of lumbar spine, vertebral body heights well maintained, multilevel degenerative disease of the lumbar spine most pronounced at L1-2, mild lower lumbar facet arthropathy ) PT-OP-C Subjective Start: 04/07/24 11:03 Freq: Status: Active Protocol: Document 04/17/24 12:59 NM (Rec: 04/17/24 13:49 NM [id number]) OP-PT Subjective Patient Comments Patient Comments Pt reports feeling worse over last couple of days. Pt reports just trying to take it easy and do some stretches (fig 4, KTC, child pose). States does not feel worse with doing them but reports that he feels worse afterward. He reports that he is worse if trying to extend spine, feels stuck. No longer taking pain killers. Thinking about getting second opinion, MRI. Very concerned that his inability to move will cause permanent damage to spine. Will message Dr. Ramirez in portal later today PT-OP-F Manual Assessment Start: 04/07/24 11:03 Freq: Status: Active Protocol: Document 04/10/24 09:04 NM (Rec: 04/10/24 09:49 NM [id number]) Manual Assessments Soft Tissue Assessment Soft Tissue Mobility Assessment Hypertrophy of B lumbar paraspinals and glutes, tenderness to palpation Joint Mobility Assessment Joint Mobility Assessment Hypomobility of thoracic and lumbar spine especially with PA springing of lower lumbar spine and R PSIS, also tender Mild curves of thoracic and lumbar spine to R side PT-OP-G Mobility & Gait Start: 04/07/24 11:03 Freq: Status: Active Protocol: Document 04/10/24 09:04 NM (Rec: 04/10/24 17:07 NM [id number]) OP Gait Assessment Gait Gait Assistance Required: Standby Assistance Distance (Feet) 150 Gait Deviations General Gait Pattern Antalgic,Flexed Trunk,Lateral Trunk Lean,Narrow Based Gait Factors Limiting Gait Function Factors Limiting Gait Function Decreased Activity Tolerance, Decreased Sensation,Decreased Strength,Limited Range of Motion,Pain Comments Gait Comments Pt demos increased trunk flexion with slight R sided lean with gait. Antalgic especially with advancing and extending RLE PT-OP-H Neuro Start: 04/07/24 11:03 Freq: Status: Active Protocol: Document 04/17/24 12:59 NM (Rec: 04/17/24 15:09 NM [id number]) Sensation Evaluation Comments Summary Comments BLE intact to light touch sensation equally. Decreased sensation to dull/sharp on RLE at thigh Deep Tendon Reflex & Clonus Assessment Deep Tendon Reflex Bilateral Achilles Deep Tendon Reflex 1+ Diminished Bilateral Patellar Deep Tendon Reflex 1+ Diminished PT-OP-J Posture/Palpation/Skin Start: 04/07/24 11:03 Freq: Status: Active Protocol: Document 04/10/24 09:04 NM (Rec: 04/10/24 17:07 NM [id number]) Posture Evaluation Position Standing Head/C-Spine Posture Forward Head L-Spine Posture Flattened,Decreased Lordosis, Fixed Scoliosis on (R) Shoulder Posture (L) Rounded,(R) Rounded Pelvis Posture Posterior Tilted,(R) Rotated Anterior,(R) Iliac Crest Superior Weight Distribution Weight Shifted Left Knee Posture (L) Genu Valgus,(R) Genu Valgus Comments Posture Comments Pain with truncal extension. Demos elevation of R pelvis and L lateral trunk shift Palpation Assessment Location lumbar spine Palpation Details Tenderness along lower lumbar spine R>L, midline and transverse processes; tenderness along R SIJ/PSIS, worse with PA springing of R SIJ PT-OP-K Range of Motion Start: 04/07/24 11:03 Freq: Status: Active Protocol: Document 04/10/24 09:04 NM (Rec: 04/10/24 09:49 NM [id number]) Lumbar Spine Range of Motion Lumbar Spine Active Percentage Flexion 75 Extension 10 Rotation Left 50 Rotation Right 50 Lateral Flexion Left 100 Lateral Flexion Right 100 Comments pain with ext, R LF Hip Goniometric Range of Motion Hip right Internal Rotation 28 External Rotation 28 left Internal Rotation 28 External Rotation 40 PT-OP-L Special Tests Start: 04/07/24 11:03 Freq: Status: Active Protocol: Document 04/10/24 09:04 NM (Rec: 04/10/24 09:49 NM [id number]) Special Tests Lumbar Spine Special Tests Slump Test Results + Comments also pain on R side w/ L test Straight Leg Raise Test Results + Comments also pain in R side w/ L test distraction Test Results + Comments mild relief but no change symptoms in RLE katz/quadrant Test Results + Comments R sided PT-OP-M Strength Start: 04/07/24 11:03 Freq: Status: Active Protocol: Document 04/10/24 09:04 NM (Rec: 04/10/24 09:49 NM [id number]) Trunk Strength Trunk Manual Muscle Testing Flexion 3 Fair Extension 3 Fair Rotation Left 3 Fair Rotation Right 3 Fair Lateral Flexion Left 3 Fair Lateral Flexion Right 3 Fair Comments pain with resisted testing Hip Strength Hip Manual Muscle Testing Right Flexion (L2) 4 Good Extension (S1) 4- Good- Abduction 4- Good- Adduction 4 Good External Rotation 4 Good Internal Rotation 4 Good Left Flexion (L2) 4 Good Extension (S1) 4- Good- Abduction 4- Good- Adduction 4 Good External Rotation 4 Good Internal Rotation 4 Good Knee Strength Knee Manual Muscle Testing Right Flexion (S2) 4 Good Extension (L3) 4 Good Left Flexion (S2) 4 Good Extension (L3) 4 Good Ankle/Foot Strength Ankle and Foot Manual Muscle Testing Right Dorsiflexion (L4) 4 Good Plantarflexion (S1) 4 Good Comments tested in sitting Left Dorsiflexion (L4) 4 Good Plantarflexion (S1) 4 Good Comments tested in sitting PT-OP-Q Treatments Start: 04/07/24 11:03 Freq: Status: Active Protocol: Document 04/17/24 12:59 NM (Rec: 04/17/24 13:49 NM [id number]) Therapeutic Exercises Supine Exercises bridge Supine Exercise Name trialed in PT Side bilateral Equipment Used segmental w/ ppt and small ROM Reps/Minutes 2x5 Comments discomfort at tail bone; reduced w/ neutral spine cue and less ppt Sidelying Exercises clams Sidelying Exercise Name HEP Side right Reps/Minutes 15 Comments pain free; following manual treatment Standing Exercises lateral shifts Standing Exercise Name Trialed in PT- to L -HOLD per PT d/t pain Equipment Used manual shift at pelvis Reps/Minutes 5 Comments reports inc pain because in standing so d/c Other Exercises counter stretch Other Exercise Name trialed in PT- HOLD Reps/Minutes 2x10 Comments pain w/ ext; reduced w/ segmental ext to standing Manual Therapy Treatment Consent Patient gave verbal consent for manual Yes treatment Soft Tissue Mobilization trunk Body Location B ES (SL) , QL, Psoas, Iliacus Mobilization Type Rolling,Sustained Pressure Body Position Hooklying Comments STMs, sustained pressure with breathing. Performed with gentle lateral flexion gapping and slight caudal distraction at iliac crest. Monitored for pain LEs Body Location B Piriformis, TFL, HS, calf Mobilization Type Rolling Body Position Sidelying Comments STMs, MWM w/ clams. Monitored for pain. Has increased restrictions at glute/ piriformis. Educated on gentle MWM at home- should not increase symptoms Self-Care/Home Management Treatment Education Patient Education Joint Protection,Pain Management,Posture,Safety Other Education 20 min- Educated on spinal anatomy, neural anatomy; stretching vs strengthening and appropriate biophysical responses to exercises. Due to neural tension vs muscle length changes, educated pt on avoiding stretching HS and overstretching piriformis. Recommended that pt continue with general movement but not irritating/symptom aggravating activities, especially with exercises pt trialing off of internet. Educated that pt should not be forceful into painful motions but can trial improving tolerance by gently working into painful motions or exercises that cause discomfort but not pain. 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) Pt will be educated on body mechanics with lifting and demonstrate core bracing while lifting small loads for at least 5/10 reps without cueing and back pain <5/10 in order to demonstrate improved strength for work-related tasks and ADLs LTG Duration 12 weeks Three Impairment JOHN 42% impaired w/ ADLs/work tasks [facility] Goal (LTG) Pt will improve JOHN impairment to <25% in order to demonstrate improvements in sitting, standing, ambulation, and lifting tolerance LTG Duration 12 weeks Two Impairment trunk ROM impaired d/t pain Short Term Goal (STG) Pt will improve trunk flexion AROM > 75% without increase in low back pain in order to be able to pick objects from floor and lift objects for work STG Duration 8 weeks [facility] Goal (LTG) Pt will be able to stand erect with back pain <5/10 during work tasks in order to demonstrate improved symptom management and trunk ROM LTG Duration 12 weeks One Impairment not performing HEP 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 Reduced with sidelying positioning. Continued emphasis on neutral spine vs maintaining flexion. Extensive emphasis on education today as pt performing self-research and exercises to supplement PT. Recommended that pt follow up with PCP for advanced imaging request and second opinion. Trialed addressing lateral shift; however, pt's symptoms flared with all spinal extension, even into just standing. Still responds well to gentle manual therapy, minor symptom decrease especially with facilitation of opening facets. Best feedback for mobilization with movement of glutes/piriformis . Pt would continue to benefit from skilled PT to improve symptom management, functional mobility, and transfers. Physical Therapy Plan Frequency and Duration Frequency of Treatment 2x/Week Duration of treatment (weeks) 12 Plan of Care Start Date 04/10/24 Plan of Care End Date 07/07/24 Therapeutic Interventions Therapeutic Interventions Balance Training,Gait Training ,Home Exercise Program,Joint Mobilizations,Manual Therapy, Neuromuscular Re-education, Orthotic/Prosthetic Management ,Patient/Caregiver Education, Self-Care/Home Management, Sensory Integration,Soft Tissue Mobilization,Taping, Therapeutic Activities, Therapeutic Exercises Modalities Cold Pack/Ice Massage,Electric Stimulation,Hot Packs, Traction- Mechanical, Ultrasound Next Visit Focus/Plan Next Note Type Treatment Note Next Visit Plan Retrial LTR, nerve glides, and dallison's on ball, gently. Trial supine core - intiate bracing and BK/july. Review sidelying clams and add reverse clams, MWM w/clams. If slade well after 04/17 session, trial segmental bridge. Trial knee to chest on ball (single vs double vs repeated) and fermin stretch on table. Gentle traction on ball. Manual therapy: STM to lumbar spine, RLE, glutes/HS, gentle distraction mobilizations and offloading. MET if appropriate POC: hip/back strengthening.
--- NOTE | 2024-04-19 14:51 | PT.OTN ---
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 He has had this before 1-2x in past several years ago, but this is worst episode. He got imaging performed, and doctor thinks DDD. Pt reports that his back has been bothering him for 1.5 months. Denies JAXSON, states slow onset. 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 He has a lot of variation between difficulty getting around to no difficulty with walking; demos strong forward trunk flexion pattern. Pt reports that 20 years ago, his initial JAXSON was lifting a wood stove. He has done several home stretching to help. However, reports that it takes a while to heal (4 months) but just a long time. 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 He has pain with straightening his leg R (and L), low back ext in sitting and standing. Prior Treatments and Tests Lumbar spine x ray 02/2024- impression: degenerative changes as described above ( mild dextroscoliosis of lumbar spine, straightening of lumbar spine, vertebral body heights well maintained, multilevel degenerative disease of the lumbar spine most pronounced at L1-2, mild lower lumbar facet arthropathy ) PT-OP-C Subjective Start: 04/07/24 11:03 Freq: Status: Active Protocol: Document 04/19/24 13:44 TS (Rec: 04/19/24 14:51 TS [id number]) OP-PT Subjective Patient Comments Patient Comments Pt reports back feels more or less the same. Presents with stiffness and antalgic gait. Discomfort is mostly on R side . PT-OP-F Manual Assessment Start: 04/07/24 11:03 Freq: Status: Active Protocol: Document 04/10/24 09:04 NM (Rec: 04/10/24 09:49 NM [id number]) Manual Assessments Soft Tissue Assessment Soft Tissue Mobility Assessment Hypertrophy of B lumbar paraspinals and glutes, tenderness to palpation Joint Mobility Assessment Joint Mobility Assessment Hypomobility of thoracic and lumbar spine especially with PA springing of lower lumbar spine and R PSIS, also tender Mild curves of thoracic and lumbar spine to R side PT-OP-G Mobility & Gait Start: 04/07/24 11:03 Freq: Status: Active Protocol: Document 04/10/24 09:04 NM (Rec: 04/10/24 17:07 NM [id number]) OP Gait Assessment Gait Gait Assistance Required: Standby Assistance Distance (Feet) 150 Gait Deviations General Gait Pattern Antalgic,Flexed Trunk,Lateral Trunk Lean,Narrow Based Gait Factors Limiting Gait Function Factors Limiting Gait Function Decreased Activity Tolerance, Decreased Sensation,Decreased Strength,Limited Range of Motion,Pain Comments Gait Comments Pt demos increased trunk flexion with slight R sided lean with gait. Antalgic especially with advancing and extending RLE PT-OP-H Neuro Start: 04/07/24 11:03 Freq: Status: Active Protocol: Document 04/17/24 12:59 NM (Rec: 04/17/24 15:09 NM [id number]) Sensation Evaluation Comments Summary Comments BLE intact to light touch sensation equally. Decreased sensation to dull/sharp on RLE at thigh Deep Tendon Reflex & Clonus Assessment Deep Tendon Reflex Bilateral Achilles Deep Tendon Reflex 1+ Diminished Bilateral Patellar Deep Tendon Reflex 1+ Diminished PT-OP-J Posture/Palpation/Skin Start: 04/07/24 11:03 Freq: Status: Active Protocol: Document 04/10/24 09:04 NM (Rec: 04/10/24 17:07 NM [id number]) Posture Evaluation Position Standing Head/C-Spine Posture Forward Head L-Spine Posture Flattened,Decreased Lordosis, Fixed Scoliosis on (R) Shoulder Posture (L) Rounded,(R) Rounded Pelvis Posture Posterior Tilted,(R) Rotated Anterior,(R) Iliac Crest Superior Weight Distribution Weight Shifted Left Knee Posture (L) Genu Valgus,(R) Genu Valgus Comments Posture Comments Pain with truncal extension. Demos elevation of R pelvis and L lateral trunk shift Palpation Assessment Location lumbar spine Palpation Details Tenderness along lower lumbar spine R>L, midline and transverse processes; tenderness along R SIJ/PSIS, worse with PA springing of R SIJ PT-OP-K Range of Motion Start: 04/07/24 11:03 Freq: Status: Active Protocol: Document 04/10/24 09:04 NM (Rec: 04/10/24 09:49 NM [id number]) Lumbar Spine Range of Motion Lumbar Spine Active Percentage Flexion 75 Extension 10 Rotation Left 50 Rotation Right 50 Lateral Flexion Left 100 Lateral Flexion Right 100 Comments pain with ext, R LF Hip Goniometric Range of Motion Hip right Internal Rotation 28 External Rotation 28 left Internal Rotation 28 External Rotation 40 PT-OP-L Special Tests Start: 04/07/24 11:03 Freq: Status: Active Protocol: Document 04/10/24 09:04 NM (Rec: 04/10/24 09:49 NM [id number]) Special Tests Lumbar Spine Special Tests Slump Test Results + Comments also pain on R side w/ L test Straight Leg Raise Test Results + Comments also pain in R side w/ L test distraction Test Results + Comments mild relief but no change symptoms in RLE katz/quadrant Test Results + Comments R sided PT-OP-M Strength Start: 04/07/24 11:03 Freq: Status: Active Protocol: Document 04/10/24 09:04 NM (Rec: 04/10/24 09:49 NM [id number]) Trunk Strength Trunk Manual Muscle Testing Flexion 3 Fair Extension 3 Fair Rotation Left 3 Fair Rotation Right 3 Fair Lateral Flexion Left 3 Fair Lateral Flexion Right 3 Fair Comments pain with resisted testing Hip Strength Hip Manual Muscle Testing Right Flexion (L2) 4 Good Extension (S1) 4- Good- Abduction 4- Good- Adduction 4 Good External Rotation 4 Good Internal Rotation 4 Good Left Flexion (L2) 4 Good Extension (S1) 4- Good- Abduction 4- Good- Adduction 4 Good External Rotation 4 Good Internal Rotation 4 Good Knee Strength Knee Manual Muscle Testing Right Flexion (S2) 4 Good Extension (L3) 4 Good Left Flexion (S2) 4 Good Extension (L3) 4 Good Ankle/Foot Strength Ankle and Foot Manual Muscle Testing Right Dorsiflexion (L4) 4 Good Plantarflexion (S1) 4 Good Comments tested in sitting Left Dorsiflexion (L4) 4 Good Plantarflexion (S1) 4 Good Comments tested in sitting PT-OP-Q Treatments Start: 04/07/24 11:03 Freq: Status: Active Protocol: Document 04/19/24 13:44 TS (Rec: 04/19/24 14:51 TS [id number]) Therapeutic Exercises Supine Exercises Core march Reps/Minutes 1x10 bridge Supine Exercise Name trialed in PT Side bilateral Equipment Used segmental w/ ppt and small ROM Reps/Minutes 2x5 Comments discomfort at tail bone, feels down back of leg. Cues for neutral spine sciatic nerve glide /c AP Supine Exercise Name added to HEP /c HO Resistance 1st grasp behind thigh- at first ok then rad pain down Post R leg- stopped Reps/Minutes 1 set 10 AP LTR Supine Exercise Name added to HEP /c HO Side bilateral Resistance BLEs on 65cm tball Reps/Minutes x10 reps each side Comments cued for TA/ MANAGER MUSIC slow R and L ROM tolerated pnfree- good response Manual Therapy Treatment Soft Tissue Mobilization LEs Body Location B Piriformis, TFL, HS, calf Mobilization Type Rolling Body Position Sidelying PT-OP-T Assessment and Plan Start: 04/07/24 11:03 Freq: Status: Active Protocol: Document 04/19/24 13:44 TS (Rec: 04/19/24 14:51 TS [id number]) Physical Therapy Assessment Goals Four Impairment trunk MMT 3/5 globally w/ pain Short Term Goal (STG) Pt will improve global trunk strength to at least 4/5 MMT in order to demonstrate increased trunk stabilization and strength for work-related tasks and ADLs STG Duration 8 weeks 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) Pt will be educated on body mechanics with lifting and demonstrate core bracing while lifting small loads for at least 5/10 reps without cueing and back pain <5/10 in order to demonstrate improved strength for work-related tasks and ADLs LTG Duration 12 weeks Three Impairment JOHN 42% impaired w/ ADLs/work tasks [facility] Goal (LTG) Pt will improve JOHN impairment to <25% in order to demonstrate improvements in sitting, standing, ambulation, and lifting tolerance LTG Duration 12 weeks Two Impairment trunk ROM impaired d/t pain Short Term Goal (STG) Pt will improve trunk flexion AROM > 75% without increase in low back pain in order to be able to pick objects from floor and lift objects for work STG Duration 8 weeks [facility] Goal (LTG) Pt will be able to stand erect with back pain <5/10 during work tasks in order to demonstrate improved symptom management and trunk ROM LTG Duration 12 weeks One Impairment not performing HEP [facility] Goal (LTG) Pt will be IND with HEP at least 3x/wk in order to maximize progression with PT and transition to maintenance program upon discharge LTG Duration 12 weeks Assessment Summary Assessment Pt continues to report discomfort in lumbar spine and has radicular symptoms. Symptoms do improve with neutral spine. Educated pt on flexion bias, pt reports increased discomfort with ext. Pt would continue to benefit from skilled PT to improve symptom management, functional mobility, and transfers. Physical Therapy Plan Next Visit Focus/Plan Next Note Type Treatment Note Next Visit Plan Continue manual, assess sary aburto july,
--- NOTE | 2024-05-02 12:57 | PT.OTN ---
Current Diagnoses Stiffness of right hip, not elsewhere classified (05/02/24) Stiffness of left hip, not elsewhere classified (05/02/24) Radiculopathy, lumbar region (05/02/24) Low back pain, unspecified (05/02/24) Weakness (05/02/24) Physical Therapy Treatment Note PT-OP-A Visit Information Start: 04/07/24 11:03 Freq: Status: Active Protocol: Document 05/02/24 08:16 NM (Rec: 05/02/24 09:03 NM [id number]) Out-Patient Physical Therapy Visit Information Visit Information Visit Type Treatment Note Visit Note 24 visits max Visit Start Time 08:17 Visit Stop Time 09:00 Visit Number 10/21 Evaluation Information Evaluation Date 04/10/24 PT-OP-B Current Condition Start: 04/07/24 11:03 Freq: Status: Active Protocol: Document 04/10/24 09:04 NM (Rec: 04/10/24 09:49 NM [id number]) Current Condition History of Current Condition Current Complaints pain, difficulty w/ mobility and transfers History of Current Condition Pt presents iwth low back pain , radiates into RLE. He has had this before 1-2x in past several years ago, but this is worst episode. He got imaging performed, and doctor thinks DDD. Pt reports that his back has been bothering him for 1.5 months. Denies JAXSON, states slow onset. 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 He has a lot of variation between difficulty getting around to no difficulty with walking; demos strong forward trunk flexion pattern. Pt reports that 20 years ago, his initial JAXSON was lifting a wood stove. He has done several home stretching to help. However, reports that it takes a while to heal (4 months) but just a long time. 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 He has pain with straightening his leg R (and L), low back ext in sitting and standing. Prior Treatments and Tests Lumbar spine x ray 02/2024- impression: degenerative changes as described above ( mild dextroscoliosis of lumbar spine, straightening of lumbar spine, vertebral body heights well maintained, multilevel degenerative disease of the lumbar spine most pronounced at L1-2, mild lower lumbar facet arthropathy ) PT-OP-C Subjective Start: 04/07/24 11:03 Freq: Status: Active Protocol: Document 05/02/24 08:16 NM (Rec: 05/02/24 09:03 NM [id number]) OP-PT Subjective Patient Comments Patient Comments Pt reports can't get imaging at due to insurance, trying to get referral to [facility]. He states that his back is not getting better. Pt reports no changes. He reports that HEP aggravates ( figure 4); benign stuff ( knee to chest, BKFO) does not make a difference. He reports that he is still having 4/10 pain in sitting. he reports that last week he was in bed by 3 pm every day due to pain; states sometimes feels like he's getting better but by end of day feels worse. Worse evening and pm. States pain is evolved, so problem are more widespread instead of localized, more radicular pain PT-OP-F Manual Assessment Start: 04/07/24 11:03 Freq: Status: Active Protocol: Document 04/10/24 09:04 NM (Rec: 04/10/24 09:49 NM [id number]) Manual Assessments Soft Tissue Assessment Soft Tissue Mobility Assessment Hypertrophy of B lumbar paraspinals and glutes, tenderness to palpation Joint Mobility Assessment Joint Mobility Assessment Hypomobility of thoracic and lumbar spine especially with PA springing of lower lumbar spine and R PSIS, also tender Mild curves of thoracic and lumbar spine to R side PT-OP-G Mobility & Gait Start: 04/07/24 11:03 Freq: Status: Active Protocol: Document 04/10/24 09:04 NM (Rec: 04/10/24 17:07 NM [id number]) OP Gait Assessment Gait Gait Assistance Required: Standby Assistance Distance (Feet) 150 Gait Deviations General Gait Pattern Antalgic,Flexed Trunk,Lateral Trunk Lean,Narrow Based Gait Factors Limiting Gait Function Factors Limiting Gait Function Decreased Activity Tolerance, Decreased Sensation,Decreased Strength,Limited Range of Motion,Pain Comments Gait Comments Pt demos increased trunk flexion with slight R sided lean with gait. Antalgic especially with advancing and extending RLE PT-OP-H Neuro Start: 04/07/24 11:03 Freq: Status: Active Protocol: Document 04/17/24 12:59 NM (Rec: 04/17/24 15:09 NM [id number]) Sensation Evaluation Comments Summary Comments BLE intact to light touch sensation equally. Decreased sensation to dull/sharp on RLE at thigh Deep Tendon Reflex & Clonus Assessment Deep Tendon Reflex Bilateral Achilles Deep Tendon Reflex 1+ Diminished Bilateral Patellar Deep Tendon Reflex 1+ Diminished PT-OP-J Posture/Palpation/Skin Start: 04/07/24 11:03 Freq: Status: Active Protocol: Document 04/10/24 09:04 NM (Rec: 04/10/24 17:07 NM [id number]) Posture Evaluation Position Standing Head/C-Spine Posture Forward Head L-Spine Posture Flattened,Decreased Lordosis, Fixed Scoliosis on (R) Shoulder Posture (L) Rounded,(R) Rounded Pelvis Posture Posterior Tilted,(R) Rotated Anterior,(R) Iliac Crest Superior Weight Distribution Weight Shifted Left Knee Posture (L) Genu Valgus,(R) Genu Valgus Comments Posture Comments Pain with truncal extension. Demos elevation of R pelvis and L lateral trunk shift Palpation Assessment Location lumbar spine Palpation Details Tenderness along lower lumbar spine R>L, midline and transverse processes; tenderness along R SIJ/PSIS, worse with PA springing of R SIJ PT-OP-K Range of Motion Start: 04/07/24 11:03 Freq: Status: Active Protocol: Document 04/10/24 09:04 NM (Rec: 04/10/24 09:49 NM [id number]) Lumbar Spine Range of Motion Lumbar Spine Active Percentage Flexion 75 Extension 10 Rotation Left 50 Rotation Right 50 Lateral Flexion Left 100 Lateral Flexion Right 100 Comments pain with ext, R LF Hip Goniometric Range of Motion Hip right Internal Rotation 28 External Rotation 28 left Internal Rotation 28 External Rotation 40 PT-OP-L Special Tests Start: 04/07/24 11:03 Freq: Status: Active Protocol: Document 04/10/24 09:04 NM (Rec: 04/10/24 09:49 NM [id number]) Special Tests Lumbar Spine Special Tests Slump Test Results + Comments also pain on R side w/ L test Straight Leg Raise Test Results + Comments also pain in R side w/ L test distraction Test Results + Comments mild relief but no change symptoms in RLE katz/quadrant Test Results + Comments R sided PT-OP-M Strength Start: 04/07/24 11:03 Freq: Status: Active Protocol: Document 04/10/24 09:04 NM (Rec: 04/10/24 09:49 NM [id number]) Trunk Strength Trunk Manual Muscle Testing Flexion 3 Fair Extension 3 Fair Rotation Left 3 Fair Rotation Right 3 Fair Lateral Flexion Left 3 Fair Lateral Flexion Right 3 Fair Comments pain with resisted testing Hip Strength Hip Manual Muscle Testing Right Flexion (L2) 4 Good Extension (S1) 4- Good- Abduction 4- Good- Adduction 4 Good External Rotation 4 Good Internal Rotation 4 Good Left Flexion (L2) 4 Good Extension (S1) 4- Good- Abduction 4- Good- Adduction 4 Good External Rotation 4 Good Internal Rotation 4 Good Knee Strength Knee Manual Muscle Testing Right Flexion (S2) 4 Good Extension (L3) 4 Good Left Flexion (S2) 4 Good Extension (L3) 4 Good Ankle/Foot Strength Ankle and Foot Manual Muscle Testing Right Dorsiflexion (L4) 4 Good Plantarflexion (S1) 4 Good Comments tested in sitting Left Dorsiflexion (L4) 4 Good Plantarflexion (S1) 4 Good Comments tested in sitting PT-OP-Q Treatments Start: 04/07/24 11:03 Freq: Status: Active Protocol: Document 05/02/24 08:16 NM (Rec: 05/02/24 09:03 NM [id number]) Therapeutic Exercises Supine Exercises single knee to chest Side right Reps/Minutes 2x30 Comments cued to not pull to max flex stretch, comfortable only sciatic nerve glide /c AP Supine Exercise Name gait belt to assist with flex, knee flex/ext w/ ankle Side right Reps/Minutes 10 Comments reports pulling in back & post leg, edu to d/c b/c felt in back Other Exercises quadruped Other Exercise Name 1. cat camel to neutral spine midrange, 2. child pose w/ IR & ER HEP Side bilateral Equipment Used 3. hip swivels Reps/Minutes 1. 10, 2. 10x3 hold, 3. 10 small ROM, tendency for flex Comments cueing to limit hip motion; less pain with ER/IR, inc pain if not neutral Manual Therapy Treatment Consent Patient gave verbal consent for manual Yes treatment Soft Tissue Mobilization trunk Body Location B ES (SL) , QL, Psoas, Iliacus Mobilization Type Rolling,Sustained Pressure Body Position Hooklying Comments STMs, sustained pressure with breathing. Performed with gentle lateral flexion gapping and slight caudal distraction at iliac crest. Monitored for pain LEs Body Location B Piriformis, TFL, HS, calf Mobilization Type Rolling Body Position Sidelying Comments Performed with MWM of ankle for gentle nerve glide in sidelying Joint Mobilizations lumbar spine Joint lumbar L4-L5, SIJ/PSIS Direction PA Grade I Body Position Prone Reps/Duration 2x10 ea Comments 3 pillows under hips, head on hands. Monitored carefully for pain. No increase in pain with mobilizations. Tenderness noted over R SIJ more than lower lumbar spine Other Other Manual Treatments Trialed stretching of R HS passively with <40 deg hip flex. Pt able to tolerate for 15 sec before increase in back pain; immediately d/c. Educated pt to avoid HS stretching due to signs of increased neural tension Self-Care/Home Management Treatment Education Patient Education Joint Protection,Pain Management Other Education Educated on avoiding performing exercises issued in HEP or from self research as hard as possible or as much as possible, which pt is doing to decrease pain. Recommended that pt perform in small doses to tolerance. Educated on neutral spine positioning with HEP Educated to trial hooklying traction on chair or sidelying traction in midafternoon for disc rehydration and symptom management as pt reports that he has not attempted those when symptoms are bad, states worsen through day. Educated on general disc height cycle PT-OP-T Assessment and Plan Start: 04/07/24 11:03 Freq: Status: Active Protocol: Document 05/02/24 08:16 NM (Rec: 05/02/24 09:03 NM [id number]) Physical Therapy Assessment Goals Four Impairment trunk MMT 3/5 globally w/ pain Short Term Goal (STG) Pt will improve global trunk strength to at least 4/5 MMT in order to demonstrate increased trunk stabilization and strength for work-related tasks and ADLs STG Duration 8 weeks Senior Care Goal (LTG) Pt will be educated on body mechanics with lifting and demonstrate core bracing while lifting small loads for at least 5/10 reps without cueing and back pain <5/10 in order to demonstrate improved strength for work-related tasks and ADLs LTG Duration 12 weeks Three Impairment JOHN 42% impaired w/ ADLs/work tasks Dress Finisher Goal (LTG) Pt will improve JOHN impairment to <25% in order to demonstrate improvements in sitting, standing, ambulation, and lifting tolerance LTG Duration 12 weeks Two Impairment trunk ROM impaired d/t pain Short Term Goal (STG) Pt will improve trunk flexion AROM > 75% without increase in low back pain in order to be able to pick objects from floor and lift objects for work STG Duration 8 weeks Dress Finisher Goal (LTG) Pt will be able to stand erect with back pain <5/10 during work tasks in order to demonstrate improved symptom management and trunk ROM LTG Duration 12 weeks One Impairment not performing HEP Dress Finisher Goal (LTG) Pt will be IND with HEP at least 3x/wk in order to maximize progression with PT and transition to maintenance program upon discharge LTG Duration 12 weeks Assessment Summary Assessment Pt tolerated manual therapy well. Has increased restrictions at R glute/ piriformis, demos more peripheralization of symptoms compared to at evaluation. Educated on centralization vs peripheralization, in addition to pain management strategies especially disc rehydration management. Trialed grade I mobilizations of lower lumbar spine for pain management, no increase in symptoms with mobilizations and carefully monitored for pain. Trialed quadruped position. Moderate verbal and tactile cueing to prevent trunk and hip flexion compensations, emphasis on maintaining neutral spine with activities rather than pushing into extension or flexion ROM. Pt responds well to neutral spine positioning with slight reduction in symptom. Poor response to hamstring stretching d/t neural tension; educated pt on avoiding hamstring stretching . Pt would continue to benefit from skilled PT for symptom management and flexibility. Physical Therapy Plan Frequency and Duration Frequency of Treatment 2x/Week Duration of treatment (weeks) 12 Plan of Care Start Date 04/10/24 Plan of Care End Date 07/07/24 Therapeutic Interventions Therapeutic Interventions Balance Training,Gait Training ,Home Exercise Program,Joint Mobilizations,Manual Therapy, Neuromuscular Re-education, Orthotic/Prosthetic Management ,Patient/Caregiver Education, Self-Care/Home Management, Sensory Integration,Soft Tissue Mobilization,Taping, Therapeutic Activities, Therapeutic Exercises Modalities Cold Pack/Ice Massage,Electric Stimulation,Hot Packs, Traction- Mechanical, Ultrasound Next Visit Focus/Plan Next Note Type Treatment Note Next Visit Plan Trial ball with piriformis MWM , edu on ergonomics with sitting, MET quadruped work, neutral spine, vs [place] ball for mobility and lengthening. Peripheralization of symptoms.
--- NOTE | 2024-05-04 15:50 | PT-OP ANOTE ---
No show- PT called pt and left message reminding pt of next upcoming appt on 05/09. Also reminded pt of attendance policy and gave 1st no-show warning. Pt will be discharged from PT is 2ns no show occurs.
--- NOTE | 2024-05-09 16:00 | PT.OTN ---
Current Diagnoses Stiffness of right hip, not elsewhere classified (05/09/24) Stiffness of left hip, not elsewhere classified (05/09/24) Radiculopathy, lumbar region (05/09/24) Low back pain, unspecified (05/09/24) Weakness (05/09/24) Physical Therapy Treatment Note PT-OP-A Visit Information Start: 04/07/24 11:03 Freq: Status: Active Protocol: Document 05/09/24 09:46 NM (Rec: 05/09/24 10:43 NM [id number]) Out-Patient Physical Therapy Visit Information Visit Information Visit Type Progress Note Visit Note 24 visits max Visit Start Time 09:48 Visit Stop Time 10:30 Visit Number 11/21 Evaluation Information Evaluation Date 04/10/24 PT-OP-B Current Condition Start: 04/07/24 11:03 Freq: Status: Active Protocol: Document 04/10/24 09:04 NM (Rec: 04/10/24 09:49 NM [id number]) Current Condition History of Current Condition Current Complaints pain, difficulty w/ mobility and transfers History of Current Condition Pt presents iwth low back pain , radiates into RLE. He has had this before 1-2x in past several years ago, but this is worst episode. He got imaging performed, and doctor thinks DDD. Pt reports that his back has been bothering him for 1.5 months. Denies JAXSON, states slow onset. 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 He has a lot of variation between difficulty getting around to no difficulty with walking; demos strong forward trunk flexion pattern. Pt reports that 20 years ago, his initial JAXSON was lifting a wood stove. He has done several home stretching to help. However, reports that it takes a while to heal (4 months) but just a long time. 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 He has pain with straightening his leg R (and L), low back ext in sitting and standing. Prior Treatments and Tests Lumbar spine x ray 02/2024- impression: degenerative changes as described above ( mild dextroscoliosis of lumbar spine, straightening of lumbar spine, vertebral body heights well maintained, multilevel degenerative disease of the lumbar spine most pronounced at L1-2, mild lower lumbar facet arthropathy ) PT-OP-C Subjective Start: 04/07/24 11:03 Freq: Status: Active Protocol: Document 05/09/24 09:46 NM (Rec: 05/09/24 10:43 NM [id number]) OP-PT Subjective Patient Comments Patient Comments Pt reports pain continues to be worse in the evenings. He is still waiting for a MRI. Pt ambulates into clinic with tall posture and antalgic gait . No radicular pain while sitting. He reports prn dull pain into his foot. No changes day to day. He reports uncomfortable following quadruped work last session, states exercise generally makes him feel. Reports more symptom isolation into glute vs back PT-OP-F Manual Assessment Start: 04/07/24 11:03 Freq: Status: Active Protocol: Document 04/10/24 09:04 NM (Rec: 04/10/24 09:49 NM [id number]) Manual Assessments Soft Tissue Assessment Soft Tissue Mobility Assessment Hypertrophy of B lumbar paraspinals and glutes, tenderness to palpation Joint Mobility Assessment Joint Mobility Assessment Hypomobility of thoracic and lumbar spine especially with PA springing of lower lumbar spine and R PSIS, also tender Mild curves of thoracic and lumbar spine to R side PT-OP-G Mobility & Gait Start: 04/07/24 11:03 Freq: Status: Active Protocol: Document 04/10/24 09:04 NM (Rec: 04/10/24 17:07 NM [id number]) OP Gait Assessment Gait Gait Assistance Required: Standby Assistance Distance (Feet) 150 Gait Deviations General Gait Pattern Antalgic,Flexed Trunk,Lateral Trunk Lean,Narrow Based Gait Factors Limiting Gait Function Factors Limiting Gait Function Decreased Activity Tolerance, Decreased Sensation,Decreased Strength,Limited Range of Motion,Pain Comments Gait Comments Pt demos increased trunk flexion with slight R sided lean with gait. Antalgic especially with advancing and extending RLE PT-OP-H Neuro Start: 04/07/24 11:03 Freq: Status: Active Protocol: Document 04/17/24 12:59 NM (Rec: 04/17/24 15:09 NM [id number]) Sensation Evaluation Comments Summary Comments BLE intact to light touch sensation equally. Decreased sensation to dull/sharp on RLE at thigh Deep Tendon Reflex & Clonus Assessment Deep Tendon Reflex Bilateral Achilles Deep Tendon Reflex 1+ Diminished Bilateral Patellar Deep Tendon Reflex 1+ Diminished PT-OP-J Posture/Palpation/Skin Start: 04/07/24 11:03 Freq: Status: Active Protocol: Document 04/10/24 09:04 NM (Rec: 04/10/24 17:07 NM [id number]) Posture Evaluation Position Standing Head/C-Spine Posture Forward Head L-Spine Posture Flattened,Decreased Lordosis, Fixed Scoliosis on (R) Shoulder Posture (L) Rounded,(R) Rounded Pelvis Posture Posterior Tilted,(R) Rotated Anterior,(R) Iliac Crest Superior Weight Distribution Weight Shifted Left Knee Posture (L) Genu Valgus,(R) Genu Valgus Comments Posture Comments Pain with truncal extension. Demos elevation of R pelvis and L lateral trunk shift Palpation Assessment Location lumbar spine Palpation Details Tenderness along lower lumbar spine R>L, midline and transverse processes; tenderness along R SIJ/PSIS, worse with PA springing of R SIJ PT-OP-K Range of Motion Start: 04/07/24 11:03 Freq: Status: Active Protocol: Document 05/09/24 09:46 NM (Rec: 05/09/24 10:43 NM [id number]) Lumbar Spine Range of Motion Lumbar Spine Active Percentage Flexion 75 Extension 10 Rotation Left 50 Rotation Right 50 Lateral Flexion Left 100 Lateral Flexion Right 100 Comments pain with ext, R LF 05/09/24: 50% flex PT-OP-L Special Tests Start: 04/07/24 11:03 Freq: Status: Active Protocol: Document 04/10/24 09:04 NM (Rec: 04/10/24 09:49 NM [id number]) Special Tests Lumbar Spine Special Tests Slump Test Results + Comments also pain on R side w/ L test Straight Leg Raise Test Results + Comments also pain in R side w/ L test distraction Test Results + Comments mild relief but no change symptoms in RLE katz/quadrant Test Results + Comments R sided PT-OP-M Strength Start: 04/07/24 11:03 Freq: Status: Active Protocol: Document 05/09/24 09:46 NM (Rec: 05/09/24 10:43 NM [id number]) Trunk Strength Trunk Manual Muscle Testing Flexion 3+ Fair+ Extension 3+ Fair+ Rotation Left 3+ Fair+ Rotation Right 3+ Fair+ Lateral Flexion Left 3+ Fair+ Lateral Flexion Right 3+ Fair+ Comments pain with resisted testing PT-OP-Q Treatments Start: 04/07/24 11:03 Freq: Status: Active Protocol: Document 05/09/24 09:46 NM (Rec: 05/09/24 10:43 NM [id number]) Therapeutic Exercises Supine Exercises isometrics Supine Exercise Name HS/glute isometrics Side bilateral Equipment Used orange cameroonian ball Reps/Minutes 10 w/ 3 breaths Comments submaximal; pain free single knee to chest Side right Reps/Minutes 5x10 periodically throughout session Comments cued to not pull to max flex stretch, comfortable only Standing Exercises calf stretch Standing Exercise Name 1. gastrocnemius, 2. soleus Side bilateral Equipment Used ZEE w/ slight forward lean Reps/Minutes 2x30 ea Comments cued pt comfort hip flexor stretch Standing Exercise Name at stairs Side bilateral Equipment Used cued ppt Reps/Minutes 2 sets x 5 breaths Comments cued straight leg Manual Therapy Treatment Consent Patient gave verbal consent for manual Yes treatment Soft Tissue Mobilization trunk Body Location B ES (SL) , QL, Psoas, Iliacus Mobilization Type Rolling,Sustained Pressure Body Position Hooklying Comments STMs, sustained pressure with breathing. Performed with gentle lateral flexion gapping and slight caudal distraction at iliac crest. Monitored for pain LEs Body Location B Piriformis, TFL, HS, calf Mobilization Type Rolling Body Position Sidelying Comments Performed with MWM of ankle for gentle nerve glide in sidelying Manual Techniques MET Type ant innom rot R, L post innom rot Body Position Hooklying Reps/Duration 6 reps x 6 hold Comments PT supporting pt legs, cueing for submaximal and breathwork to reduce breatholding Test-retest w/ bridging, less pain in low back/glute following MET Self-Care/Home Management Treatment Education Patient Education Joint Protection,Pain Management,Posture Other Education Educated and issued hand out on sitting mechanics: lumbar support, education on use of towel roll with periodic use and gradual increase in time to promote slight ext at pelvis PT-OP-T Assessment and Plan Start: 04/07/24 11:03 Freq: Status: Active Protocol: Document 05/09/24 09:46 NM (Rec: 05/09/24 10:43 NM [id number]) Physical Therapy Assessment Goals Four Impairment trunk MMT 3/5 globally w/ pain Short Term Goal (STG) Pt will improve global trunk strength to at least 4/5 MMT in order to demonstrate increased trunk stabilization and strength for work-related tasks and ADLs 05/09/24: 3+/5 MMT no increased pain STG Duration 8 weeks PROGRESSING Residential Goal (LTG) Pt will be educated on body mechanics with lifting and demonstrate core bracing while lifting small loads for at least 5/10 reps without cueing and back pain <5/10 in order to demonstrate improved strength for work-related tasks and ADLs LTG Duration 12 weeks Three Impairment JOHN 42% impaired w/ ADLs/work tasks Residential Goal (LTG) Pt will improve JOHN impairment to <25% in order to demonstrate improvements in sitting, standing, ambulation, and lifting tolerance 05/09/24: LTG Duration 12 weeks Two Impairment trunk ROM impaired d/t pain Short Term Goal (STG) Pt will improve trunk flexion AROM > 75% without increase in low back pain in order to be able to pick objects from floor and lift objects for work 05/09/24: 50% flexion today s/ p stretching calfs/ hip flexors STG Duration 8 weeks Club Manager Goal (LTG) Pt will be able to stand erect with back pain <5/10 during work tasks in order to demonstrate improved symptom management and trunk ROM LTG Duration 12 weeks One Impairment not performing HEP Club Manager Goal (LTG) Pt will be IND with HEP at least 3x/wk in order to maximize progression with PT and transition to maintenance program upon discharge 05/09/24: pt performing HEP periodically LTG Duration 12 weeks Assessment Summary Assessment Pt tolerated session well. Continues to limitations at glute/piriformis on R side; palpable muscle restrictions with mild improvements with manual treatment. Trialed MET to facilitate more neutral pelvis and decrease hip flexor activation on R. Pt responds well to MET. He continues to demo antalgic gait and flexion bias at trunk. Trialed stretching of hip flexors and calf today with gentle stretching; cueing for breathwork to limit breath- holding and to decrease compensations. Pt would continue to benefit from skilled PT for improved symptom management Physical Therapy Plan Frequency and Duration Frequency of Treatment 2x/Week Duration of treatment (weeks) 12 Plan of Care Start Date 04/10/24 Plan of Care End Date 07/07/24 Therapeutic Interventions Therapeutic Interventions Balance Training,Gait Training ,Home Exercise Program,Joint Mobilizations,Manual Therapy, Neuromuscular Re-education, Orthotic/Prosthetic Management ,Patient/Caregiver Education, Self-Care/Home Management, Sensory Integration,Soft Tissue Mobilization,Taping, Therapeutic Activities, Therapeutic Exercises Modalities Cold Pack/Ice Massage,Electric Stimulation,Hot Packs, Traction- Mechanical, Ultrasound Other Referrals/Consults Referrals/Consults Recommended JOHN 62% impairment, an increase (worse) from evaluation at 42% impairment. Pt would likely benefit from further referral to sales order specialist and for more advanced imaging (MRI) due to minimal changes in symptoms. Next Visit Focus/Plan Next Note Type Treatment Note Next Visit Plan Trial ball with piriformis MWM . Assess slade to MET. Cont with supine vs sitting hip/core lorrie, 90/90. retrial hip flexor stretching in standing or sitting. edu on intensity quadruped work if slade, neutral spine, vs cameroonian ball for mobility and lengthening. manual tx including lumbar traction as needed
--- NOTE | 2024-05-12 09:05 | PT.OTN ---
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 He has had this before 1-2x in past several years ago, but this is worst episode. He got imaging performed, and doctor thinks DDD. Pt reports that his back has been bothering him for 1.5 months. Denies JAXSON, states slow onset. 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 He has a lot of variation between difficulty getting around to no difficulty with walking; demos strong forward trunk flexion pattern. Pt reports that 20 years ago, his initial JAXSON was lifting a wood stove. He has done several home stretching to help. However, reports that it takes a while to heal (4 months) but just a long time. 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 He has pain with straightening his leg R (and L), low back ext in sitting and standing. Prior Treatments and Tests Lumbar spine x ray 02/2024- impression: degenerative changes as described above ( mild dextroscoliosis of lumbar spine, straightening of lumbar spine, vertebral body heights well maintained, multilevel degenerative disease of the lumbar spine most pronounced at L1-2, mild lower lumbar facet arthropathy ) PT-OP-C Subjective Start: 04/07/24 11:03 Freq: Status: Active Protocol: Document 05/12/24 08:17 SP (Rec: 05/12/24 09:07 SP [id number]) OP-PT Subjective Patient Comments Patient Comments Pt reports back and R radicular pain still affects his sleep, mainly a sidesleeper with use pillows. This am arrival reports not as bad but pain and decreased mobility worsens as day progresses. PT-OP-F Manual Assessment Start: 04/07/24 11:03 Freq: Status: Active Protocol: Document 04/10/24 09:04 NM (Rec: 04/10/24 09:49 NM [id number]) Manual Assessments Soft Tissue Assessment Soft Tissue Mobility Assessment Hypertrophy of B lumbar paraspinals and glutes, tenderness to palpation Joint Mobility Assessment Joint Mobility Assessment Hypomobility of thoracic and lumbar spine especially with PA springing of lower lumbar spine and R PSIS, also tender Mild curves of thoracic and lumbar spine to R side PT-OP-G Mobility & Gait Start: 04/07/24 11:03 Freq: Status: Active Protocol: Document 04/10/24 09:04 NM (Rec: 04/10/24 17:07 NM [id number]) OP Gait Assessment Gait Gait Assistance Required: Standby Assistance Distance (Feet) 150 Gait Deviations General Gait Pattern Antalgic,Flexed Trunk,Lateral Trunk Lean,Narrow Based Gait Factors Limiting Gait Function Factors Limiting Gait Function Decreased Activity Tolerance, Decreased Sensation,Decreased Strength,Limited Range of Motion,Pain Comments Gait Comments Pt demos increased trunk flexion with slight R sided lean with gait. Antalgic especially with advancing and extending RLE PT-OP-H Neuro Start: 04/07/24 11:03 Freq: Status: Active Protocol: Document 04/17/24 12:59 NM (Rec: 04/17/24 15:09 NM [id number]) Sensation Evaluation Comments Summary Comments BLE intact to light touch sensation equally. Decreased sensation to dull/sharp on RLE at thigh Deep Tendon Reflex & Clonus Assessment Deep Tendon Reflex Bilateral Achilles Deep Tendon Reflex 1+ Diminished Bilateral Patellar Deep Tendon Reflex 1+ Diminished PT-OP-J Posture/Palpation/Skin Start: 04/07/24 11:03 Freq: Status: Active Protocol: Document 04/10/24 09:04 NM (Rec: 04/10/24 17:07 NM [id number]) Posture Evaluation Position Standing Head/C-Spine Posture Forward Head L-Spine Posture Flattened,Decreased Lordosis, Fixed Scoliosis on (R) Shoulder Posture (L) Rounded,(R) Rounded Pelvis Posture Posterior Tilted,(R) Rotated Anterior,(R) Iliac Crest Superior Weight Distribution Weight Shifted Left Knee Posture (L) Genu Valgus,(R) Genu Valgus Comments Posture Comments Pain with truncal extension. Demos elevation of R pelvis and L lateral trunk shift Palpation Assessment Location lumbar spine Palpation Details Tenderness along lower lumbar spine R>L, midline and transverse processes; tenderness along R SIJ/PSIS, worse with PA springing of R SIJ PT-OP-K Range of Motion Start: 04/07/24 11:03 Freq: Status: Active Protocol: Document 05/09/24 09:46 NM (Rec: 05/09/24 10:43 NM [id number]) Lumbar Spine Range of Motion Lumbar Spine Active Percentage Flexion 75 Extension 10 Rotation Left 50 Rotation Right 50 Lateral Flexion Left 100 Lateral Flexion Right 100 Comments pain with ext, R LF 05/09/24: 50% flex PT-OP-L Special Tests Start: 04/07/24 11:03 Freq: Status: Active Protocol: Document 04/10/24 09:04 NM (Rec: 04/10/24 09:49 NM [id number]) Special Tests Lumbar Spine Special Tests Slump Test Results + Comments also pain on R side w/ L test Straight Leg Raise Test Results + Comments also pain in R side w/ L test distraction Test Results + Comments mild relief but no change symptoms in RLE katz/quadrant Test Results + Comments R sided PT-OP-M Strength Start: 04/07/24 11:03 Freq: Status: Active Protocol: Document 05/09/24 09:46 NM (Rec: 05/09/24 10:43 NM [id number]) Trunk Strength Trunk Manual Muscle Testing Flexion 3+ Fair+ Extension 3+ Fair+ Rotation Left 3+ Fair+ Rotation Right 3+ Fair+ Lateral Flexion Left 3+ Fair+ Lateral Flexion Right 3+ Fair+ Comments pain with resisted testing PT-OP-Q Treatments Start: 04/07/24 11:03 Freq: Status: Active Protocol: Document 05/12/24 08:17 SP (Rec: 05/12/24 09:07 SP [id number]) Gym Equipment Therapeutic Ball Tball Exercise Details pelvic tilts: anterior/ posterior/lateral Ball Size/Color 65cm (has home) Body Position seated Reps/Duration 3 reps each x2 Comments tactile cues for stationary BLE WB increase LUCY and elevated trunk posturing stationary, VCs very slow anterior/posterior then lateral tilts within pnfree range. Pt tolerates low reps, and improves control with slower pacing. Therapeutic Exercises Supine Exercises Phu Stretch Supine Exercise Name added to HEP declined HO Resistance opp KTC Reps/Minutes 30 SH Comments pnfree bridge Supine Exercise Name trialed in PT Side bilateral Resistance orange ball Equipment Used segmental w/ ppt and small ROM Reps/Minutes x5- stopped Comments discomfort at tail bone, feels down back of R leg. Cues for neutral spine sciatic nerve glide /c AP Supine Exercise Name grasp behind knee: assist with flex, knee flex/ext w/ ankle Side right Reps/Minutes 10 Comments reports pulling in back & post leg- stopped Prone Exercises hip ext Prone Exercise Name added to HEP declined HO Equipment Used 1 pillow then removed Reps/Minutes 4 reps Comments pnfree Manual Therapy Treatment Consent Patient gave verbal consent for manual Yes treatment Soft Tissue Mobilization trunk Body Location B ES (SL) , QL Mobilization Type Rolling,Sustained Pressure, Other Body Position Sidelying Comments STMs, sustained pressure with breathing. Performed with gentle lateral flexion gapping and slight caudal distraction at iliac crest. Monitored for pain LEs Body Location B Piriformis, Glut med, TFL, HS Mobilization Type Rolling,Sustained Pressure, Other Body Position Sidelying Comments - SL: Performed with MWM clamshell, ankle flex/ext for gentle nerve glide in sidelying Tension reduction reported - prone: MWM hip IR/ER: pir, glut med, HS- pnfree Joint Mobilizations lumbar spine Joint Each SIJ Direction PA Grade II Body Position Prone Reps/Duration 10 SH Comments 3 pillows under hips, head on hands. Monitored carefully for pain. No increase in pain with mobilizations. Tenderness , lessened pain over R, fine L , ed breath PT-OP-T Assessment and Plan Start: 04/07/24 11:03 Freq: Status: Active Protocol: Document 05/12/24 08:17 NANDINI (Rec: 05/12/24 09:07 SP [id number]) Physical Therapy Assessment Goals Four Impairment trunk MMT 3/5 globally w/ pain Short Term Goal (STG) Pt will improve global trunk strength to at least 4/5 MMT in order to demonstrate increased trunk stabilization and strength for work-related tasks and ADLs 05/09/24: 3+/5 MMT no increased pain STG Duration 8 weeks PROGRESSING Care Home Goal (LTG) Pt will be educated on body mechanics with lifting and demonstrate core bracing while lifting small loads for at least 5/10 reps without cueing and back pain <5/10 in order to demonstrate improved strength for work-related tasks and ADLs LTG Duration 12 weeks Three Impairment JOHN 42% impaired w/ ADLs/work tasks Care Home Goal (LTG) Pt will improve JOHN impairment to <25% in order to demonstrate improvements in sitting, standing, ambulation, and lifting tolerance 05/09/24: LTG Duration 12 weeks Two Impairment trunk ROM impaired d/t pain Short Term Goal (STG) Pt will improve trunk flexion AROM > 75% without increase in low back pain in order to be able to pick objects from floor and lift objects for work 05/09/24: 50% flexion today s/ p stretching calfs/ hip flexors STG Duration 8 weeks Campaign Advisor Goal (LTG) Pt will be able to stand erect with back pain <5/10 during work tasks in order to demonstrate improved symptom management and trunk ROM LTG Duration 12 weeks One Impairment not performing HEP Campaign Advisor Goal (LTG) Pt will be IND with HEP at least 3x/wk in order to maximize progression with PT and transition to maintenance program upon discharge 05/09/24: pt performing HEP periodically LTG Duration 12 weeks Assessment Summary Assessment Pt improved lumbar ext neutral post manual and stretching, addition of Phu Stretch and prone breath. Cues for TA support neutral lumbar spine, able to progress into LE extension this tx with level pelvis, ed monitor painfree range. Trialed seated tball with pelvic mobility, cues for small/slow range reports pnfree then when not focused demonstrates larger range causing pain. Education on small motions with TA support, alignment and incorporating towel in back as instructed previous tx for support sitting painfree reduction. Pt reports back little more irritated end tx than when arrived, posturing bent fwd. Physical Therapy Plan Frequency and Duration Frequency of Treatment 2x/Week Duration of treatment (weeks) 12 Plan of Care Start Date 04/10/24 Plan of Care End Date 07/07/24 Therapeutic Interventions Therapeutic Interventions Balance Training,Gait Training ,Home Exercise Program,Joint Mobilizations,Manual Therapy, Neuromuscular Re-education, Orthotic/Prosthetic Management ,Patient/Caregiver Education, Self-Care/Home Management, Sensory Integration,Soft Tissue Mobilization,Taping, Therapeutic Activities, Therapeutic Exercises Modalities Cold Pack/Ice Massage,Electric Stimulation,Hot Packs, Traction- Mechanical, Ultrasound Other Referrals/Consults Referrals/Consults Recommended JOHN 62% impairment, an increase (worse) from evaluation at 42% impairment. Pt would likely benefit from further referral to research specialist and for more advanced imaging (MRI) due to minimal changes in symptoms. Next Visit Focus/Plan Next Note Type Treatment Note Next Visit Plan Trial ball with piriformis MWM . Assess slade to MET. Cont with supine hip/core lorrie, 90/90. REcheck hipflexor supine. edu on intensity prone and quadruped work if slade, neutral spine, vs ivorian ball for mobility and lengthening. manual tx including lumbar traction as needed
--- NOTE | 2024-05-16 10:43 | PT.OTN ---
Current Diagnoses Stiffness of right hip, not elsewhere classified (05/16/24) Stiffness of left hip, not elsewhere classified (05/16/24) Radiculopathy, lumbar region (05/16/24) Low back pain, unspecified (05/16/24) Weakness (05/16/24) Physical Therapy Treatment Note PT-OP-A Visit Information Start: 04/07/24 11:03 Freq: Status: Active Protocol: Document 05/16/24 08:19 NM (Rec: 05/16/24 09:04 NM [id number]) Out-Patient Physical Therapy Visit Information Visit Information Visit Type Treatment Note Visit Note 24 visits max Visit Start Time 08:19 Visit Stop Time 09:00 Visit Number 01/21 PT-OP-B Current Condition Start: 04/07/24 11:03 Freq: Status: Active Protocol: Document 04/10/24 09:04 NM (Rec: 04/10/24 09:49 NM [id number]) Current Condition History of Current Condition Current Complaints pain, difficulty w/ mobility and transfers History of Current Condition Pt presents iwth low back pain , radiates into RLE. He has had this before 1-2x in past several years ago, but this is worst episode. He got imaging performed, and doctor thinks DDD. Pt reports that his back has been bothering him for 1.5 months. Denies JAXSON, states slow onset. 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 He has a lot of variation between difficulty getting around to no difficulty with walking; demos strong forward trunk flexion pattern. Pt reports that 20 years ago, his initial JAXSON was lifting a wood stove. He has done several home stretching to help. However, reports that it takes a while to heal (4 months) but just a long time. 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 He has pain with straightening his leg R (and L), low back ext in sitting and standing. Prior Treatments and Tests Lumbar spine x ray 02/2024- impression: degenerative changes as described above ( mild dextroscoliosis of lumbar spine, straightening of lumbar spine, vertebral body heights well maintained, multilevel degenerative disease of the lumbar spine most pronounced at L1-2, mild lower lumbar facet arthropathy ) PT-OP-C Subjective Start: 04/07/24 11:03 Freq: Status: Active Protocol: Document 05/16/24 08:19 NM (Rec: 05/16/24 09:04 NM [id number]) OP-PT Subjective Patient Comments Patient Comments Pt reports that he is doing ok this morning, states he can stand up straighter and walk straighter. He reports that felt good following last session until later that afternoon. Feels worse in afternoon. Was able to stand longer yesterday at the store. He states that he feels 20% better right now. PT-OP-F Manual Assessment Start: 04/07/24 11:03 Freq: Status: Active Protocol: Document 04/10/24 09:04 NM (Rec: 04/10/24 09:49 NM [id number]) Manual Assessments Soft Tissue Assessment Soft Tissue Mobility Assessment Hypertrophy of B lumbar paraspinals and glutes, tenderness to palpation Joint Mobility Assessment Joint Mobility Assessment Hypomobility of thoracic and lumbar spine especially with PA springing of lower lumbar spine and R PSIS, also tender Mild curves of thoracic and lumbar spine to R side PT-OP-G Mobility & Gait Start: 04/07/24 11:03 Freq: Status: Active Protocol: Document 04/10/24 09:04 NM (Rec: 04/10/24 17:07 NM [id number]) OP Gait Assessment Gait Gait Assistance Required: Standby Assistance Distance (Feet) 150 Gait Deviations General Gait Pattern Antalgic,Flexed Trunk,Lateral Trunk Lean,Narrow Based Gait Factors Limiting Gait Function Factors Limiting Gait Function Decreased Activity Tolerance, Decreased Sensation,Decreased Strength,Limited Range of Motion,Pain Comments Gait Comments Pt demos increased trunk flexion with slight R sided lean with gait. Antalgic especially with advancing and extending RLE PT-OP-H Neuro Start: 04/07/24 11:03 Freq: Status: Active Protocol: Document 04/17/24 12:59 NM (Rec: 04/17/24 15:09 NM [id number]) Sensation Evaluation Comments Summary Comments BLE intact to light touch sensation equally. Decreased sensation to dull/sharp on RLE at thigh Deep Tendon Reflex & Clonus Assessment Deep Tendon Reflex Bilateral Achilles Deep Tendon Reflex 1+ Diminished Bilateral Patellar Deep Tendon Reflex 1+ Diminished PT-OP-J Posture/Palpation/Skin Start: 04/07/24 11:03 Freq: Status: Active Protocol: Document 04/10/24 09:04 NM (Rec: 04/10/24 17:07 NM [id number]) Posture Evaluation Position Standing Head/C-Spine Posture Forward Head L-Spine Posture Flattened,Decreased Lordosis, Fixed Scoliosis on (R) Shoulder Posture (L) Rounded,(R) Rounded Pelvis Posture Posterior Tilted,(R) Rotated Anterior,(R) Iliac Crest Superior Weight Distribution Weight Shifted Left Knee Posture (L) Genu Valgus,(R) Genu Valgus Comments Posture Comments Pain with truncal extension. Demos elevation of R pelvis and L lateral trunk shift Palpation Assessment Location lumbar spine Palpation Details Tenderness along lower lumbar spine R>L, midline and transverse processes; tenderness along R SIJ/PSIS, worse with PA springing of R SIJ PT-OP-K Range of Motion Start: 04/07/24 11:03 Freq: Status: Active Protocol: Document 05/09/24 09:46 NM (Rec: 05/09/24 10:43 NM [id number]) Lumbar Spine Range of Motion Lumbar Spine Active Percentage Flexion 75 Extension 10 Rotation Left 50 Rotation Right 50 Lateral Flexion Left 100 Lateral Flexion Right 100 Comments pain with ext, R LF 05/09/24: 50% flex PT-OP-L Special Tests Start: 04/07/24 11:03 Freq: Status: Active Protocol: Document 04/10/24 09:04 NM (Rec: 04/10/24 09:49 NM [id number]) Special Tests Lumbar Spine Special Tests Slump Test Results + Comments also pain on R side w/ L test Straight Leg Raise Test Results + Comments also pain in R side w/ L test distraction Test Results + Comments mild relief but no change symptoms in RLE katz/quadrant Test Results + Comments R sided PT-OP-M Strength Start: 04/07/24 11:03 Freq: Status: Active Protocol: Document 05/09/24 09:46 NM (Rec: 05/09/24 10:43 NM [id number]) Trunk Strength Trunk Manual Muscle Testing Flexion 3+ Fair+ Extension 3+ Fair+ Rotation Left 3+ Fair+ Rotation Right 3+ Fair+ Lateral Flexion Left 3+ Fair+ Lateral Flexion Right 3+ Fair+ Comments pain with resisted testing PT-OP-Q Treatments Start: 04/07/24 11:03 Freq: Status: Active Protocol: Document 05/16/24 08:19 NM (Rec: 05/16/24 09:04 NM [id number]) Therapeutic Exercises Prone Exercises prone on elbows Prone Exercise Name HEP (declines HO) Side bilateral Equipment Used pillow under hips Reps/Minutes 2 min hip IR Side bilateral Reps/Minutes 2x5 Comments pain free prone lying Prone Exercise Name 1. lying -hands under head w/ pillow at hips, 2. nerve glide Resistance 2. nerve glides: A/P neutral, inversion/eversion Equipment Used pillow under hips for comfort Reps/Minutes 15 ea position hamstring curls Side bilateral Equipment Used prn cues for form Reps/Minutes 10 ea Comments cue exhale w/ exertion; mild inc tension, dec w/ less ROM hip ext Prone Exercise Name HEP review (no HO provided last session) Side bilateral Equipment Used 1 pillow under hips Reps/Minutes 10 L, 2x5 R Comments verbal and tactiles cues for knee ext, pain free Sitting Exercises cymraes ball Sitting Exercise Name 1. posture w/ neutral spine, tilts, 2. lat tilts, 3.hip flexor stretch Equipment Used self tactile cues on hips Reps/Minutes 1. 10, 2. 10, 3. 2x30 Comments small rom, cues neutral spine, reposition foot Manual Therapy Treatment Consent Patient gave verbal consent for manual Yes treatment Soft Tissue Mobilization trunk Body Location B ES (SL) , QL Mobilization Type Rolling,Sustained Pressure, Other Body Position Prone Comments pillow under hips for comfort. monitored for pain LEs Body Location B Piriformis, Glut med, TFL, HS Mobilization Type Instrument Assisted,Rolling, Strumming,Sustained Pressure Body Position Prone Comments prone w/ pillow under hips. Performed with rolling pin, distal > proximal. Trigger points at proximal hamstring and medial calf. reports tension reduction Self-Care/Home Management Treatment Education Patient Education Home Exercise Program,Joint Protection,Pain Management, Posture Other Education Pt asking if can swim. PT recommended starting w/ ambulation in pool, gentle pool exercise then transition to strokes if tolerates well. Educated to continue to avoid stretches/exercises that exacerbate symptoms or to push past point of comfort into end range for improved pain management PT-OP-T Assessment and Plan Start: 04/07/24 11:03 Freq: Status: Active Protocol: Document 05/16/24 08:19 NM (Rec: 05/16/24 09:04 NM [id number]) Physical Therapy Assessment Goals Four Impairment trunk MMT 3/5 globally w/ pain Short Term Goal (STG) Pt will improve global trunk strength to at least 4/5 MMT in order to demonstrate increased trunk stabilization and strength for work-related tasks and ADLs 05/09/24: 3+/5 MMT no increased pain STG Duration 8 weeks 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 Goal (LTG) Pt will be educated on body mechanics with lifting and demonstrate core bracing while lifting small loads for at least 5/10 reps without cueing and back pain <5/10 in order to demonstrate improved strength for work-related tasks and ADLs LTG Duration 12 weeks Three Impairment JOHN 42% impaired w/ ADLs/work tasks Custodial Goal (LTG) Pt will improve JOHN impairment to <25% in order to demonstrate improvements in sitting, standing, ambulation, and lifting tolerance 05/09/24: LTG Duration 12 weeks Two Impairment trunk ROM impaired d/t pain Short Term Goal (STG) Pt will improve trunk flexion AROM > 75% without increase in low back pain in order to be able to pick objects from floor and lift objects for work 05/09/24: 50% flexion today s/ p stretching calfs/ hip flexors STG Duration 8 weeks Custodial Goal (LTG) Pt will be able to stand erect with back pain <5/10 during work tasks in order to demonstrate improved symptom management and trunk ROM LTG Duration 12 weeks One Impairment not performing HEP Custodial Goal (LTG) Pt will be IND with HEP at least 3x/wk in order to maximize progression with PT and transition to maintenance program upon discharge 05/09/24: pt performing HEP periodically LTG Duration 12 weeks Assessment Summary Assessment Pt tolerated session well, reports no increased pain during session. Improved response to prone today. Able to progress into prone on elbows with pillow under hips for comfort. Mild tension in RLE still present following hamstring curls in prone, but reduced with ROM. Cueing needed to limit compensations at trunk with hip extension and hip IR; improved with cueing for smaller range of motion and with intermittent verbal/tactile cues for breathwork (exhale with exertion) and postural cues. Still antalgic gait but maintains taller posture at end of session. PT provided education to pt on gentle exercise with clear education to avoid activities or stretches/exercises that exacerbate symptoms or stretching/performing to end range for pain management. Pt verbalizes understanding but continues to demonstrate little carryover between sessions. Physical Therapy Plan Frequency and Duration Frequency of Treatment 2x/Week Duration of treatment (weeks) 12 Plan of Care Start Date 04/10/24 Plan of Care End Date 07/07/24 Therapeutic Interventions Therapeutic Interventions Balance Training,Gait Training ,Home Exercise Program,Joint Mobilizations,Manual Therapy, Neuromuscular Re-education, Orthotic/Prosthetic Management ,Patient/Caregiver Education, Self-Care/Home Management, Sensory Integration,Soft Tissue Mobilization,Taping, Therapeutic Activities, Therapeutic Exercises Modalities Cold Pack/Ice Massage,Electric Stimulation,Hot Packs, Traction- Mechanical, Ultrasound Other Referrals/Consults Referrals/Consults Recommended JOHN 62% impairment, an increase (worse) from evaluation at 42% impairment. Pt would likely benefit from further referral to customer resource specialist and for more advanced imaging (MRI) due to minimal changes in symptoms. Next Visit Focus/Plan Next Note Type Treatment Note Next Visit Plan If slade well, trial mini prone press up, can trial add low level resistance. retrial bridge for ext training. Standing mobilization lumbar against support if slade and standing hip ext/abd. Depending on pt improvement, recommend trialing rows, lat pull downs, carries, and squat /leg press/STS. manual tx including lumbar traction as needed
--- NOTE | 2024-05-18 09:01 | PT.OTN ---
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 He has had this before 1-2x in past several years ago, but this is worst episode. He got imaging performed, and doctor thinks DDD. Pt reports that his back has been bothering him for 1.5 months. Denies JAXSON, states slow onset. 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 He has a lot of variation between difficulty getting around to no difficulty with walking; demos strong forward trunk flexion pattern. Pt reports that 20 years ago, his initial JAXSON was lifting a wood stove. He has done several home stretching to help. However, reports that it takes a while to heal (4 months) but just a long time. 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 He has pain with straightening his leg R (and L), low back ext in sitting and standing. Prior Treatments and Tests Lumbar spine x ray 02/2024- impression: degenerative changes as described above ( mild dextroscoliosis of lumbar spine, straightening of lumbar spine, vertebral body heights well maintained, multilevel degenerative disease of the lumbar spine most pronounced at L1-2, mild lower lumbar facet arthropathy ) PT-OP-C Subjective Start: 04/07/24 11:03 Freq: Status: Active Protocol: Document 05/18/24 08:23 SP (Rec: 05/18/24 09:03 SP [id number]) OP-PT Subjective Patient Comments Patient Comments Pt reports feels 10 % better and walking little straighter. Feels more piriformis on R little more isolated irritation/discomfort vs LB. PT-OP-F Manual Assessment Start: 04/07/24 11:03 Freq: Status: Active Protocol: Document 04/10/24 09:04 NM (Rec: 04/10/24 09:49 NM [id number]) Manual Assessments Soft Tissue Assessment Soft Tissue Mobility Assessment Hypertrophy of B lumbar paraspinals and glutes, tenderness to palpation Joint Mobility Assessment Joint Mobility Assessment Hypomobility of thoracic and lumbar spine especially with PA springing of lower lumbar spine and R PSIS, also tender Mild curves of thoracic and lumbar spine to R side PT-OP-G Mobility & Gait Start: 04/07/24 11:03 Freq: Status: Active Protocol: Document 04/10/24 09:04 NM (Rec: 04/10/24 17:07 NM [id number]) OP Gait Assessment Gait Gait Assistance Required: Standby Assistance Distance (Feet) 150 Gait Deviations General Gait Pattern Antalgic,Flexed Trunk,Lateral Trunk Lean,Narrow Based Gait Factors Limiting Gait Function Factors Limiting Gait Function Decreased Activity Tolerance, Decreased Sensation,Decreased Strength,Limited Range of Motion,Pain Comments Gait Comments Pt demos increased trunk flexion with slight R sided lean with gait. Antalgic especially with advancing and extending RLE PT-OP-H Neuro Start: 04/07/24 11:03 Freq: Status: Active Protocol: Document 04/17/24 12:59 NM (Rec: 04/17/24 15:09 NM [id number]) Sensation Evaluation Comments Summary Comments BLE intact to light touch sensation equally. Decreased sensation to dull/sharp on RLE at thigh Deep Tendon Reflex & Clonus Assessment Deep Tendon Reflex Bilateral Achilles Deep Tendon Reflex 1+ Diminished Bilateral Patellar Deep Tendon Reflex 1+ Diminished PT-OP-J Posture/Palpation/Skin Start: 04/07/24 11:03 Freq: Status: Active Protocol: Document 04/10/24 09:04 NM (Rec: 04/10/24 17:07 NM [id number]) Posture Evaluation Position Standing Head/C-Spine Posture Forward Head L-Spine Posture Flattened,Decreased Lordosis, Fixed Scoliosis on (R) Shoulder Posture (L) Rounded,(R) Rounded Pelvis Posture Posterior Tilted,(R) Rotated Anterior,(R) Iliac Crest Superior Weight Distribution Weight Shifted Left Knee Posture (L) Genu Valgus,(R) Genu Valgus Comments Posture Comments Pain with truncal extension. Demos elevation of R pelvis and L lateral trunk shift Palpation Assessment Location lumbar spine Palpation Details Tenderness along lower lumbar spine R>L, midline and transverse processes; tenderness along R SIJ/PSIS, worse with PA springing of R SIJ PT-OP-K Range of Motion Start: 04/07/24 11:03 Freq: Status: Active Protocol: Document 05/09/24 09:46 NM (Rec: 05/09/24 10:43 NM [id number]) Lumbar Spine Range of Motion Lumbar Spine Active Percentage Flexion 75 Extension 10 Rotation Left 50 Rotation Right 50 Lateral Flexion Left 100 Lateral Flexion Right 100 Comments pain with ext, R LF 05/09/24: 50% flex PT-OP-L Special Tests Start: 04/07/24 11:03 Freq: Status: Active Protocol: Document 04/10/24 09:04 NM (Rec: 04/10/24 09:49 NM [id number]) Special Tests Lumbar Spine Special Tests Slump Test Results + Comments also pain on R side w/ L test Straight Leg Raise Test Results + Comments also pain in R side w/ L test distraction Test Results + Comments mild relief but no change symptoms in RLE katz/quadrant Test Results + Comments R sided PT-OP-M Strength Start: 04/07/24 11:03 Freq: Status: Active Protocol: Document 05/09/24 09:46 NM (Rec: 05/09/24 10:43 NM [id number]) Trunk Strength Trunk Manual Muscle Testing Flexion 3+ Fair+ Extension 3+ Fair+ Rotation Left 3+ Fair+ Rotation Right 3+ Fair+ Lateral Flexion Left 3+ Fair+ Lateral Flexion Right 3+ Fair+ Comments pain with resisted testing PT-OP-Q Treatments Start: 04/07/24 11:03 Freq: Status: Active Protocol: Document 05/18/24 08:23 SP (Rec: 05/18/24 09:03 SP [id number]) Therapeutic Exercises Supine Exercises Phu Stretch Supine Exercise Name reviewed Side bilateral Resistance opp LE KTC Reps/Minutes 60 SH Comments pnfree reported bridge Supine Exercise Name retrialed in PT Side bilateral Resistance feet on table Equipment Used segmental w/ ppt and small ROM Reps/Minutes x10 reps Comments painfree, cues for pelvis mobility- segmental movement Piriformis stretch /c Lateral trunk Rot L Supine Exercise Name reviewed (dallison's manuever) Side right Resistance R ankle over L thigh, leg support on 65 cm tball Equipment Used towel supporting bent L knee and ball roll to L Reps/Minutes 10 SH x5 reps in PT Comments reports pnfree in R LB/hip Prone Exercises prone on elbows Prone Exercise Name mini lift reviewed (continues decline HO) Side bilateral Equipment Used pillow under hips Reps/Minutes 2 min Comments cued slow pnfree motion- only light tension in LS reported no pain Other Exercises STMs Other Exercise Name tennis ball R Piriformis Manual Therapy Treatment Consent Patient gave verbal consent for manual Yes treatment Soft Tissue Mobilization trunk Body Location B ES (SL) , QL Mobilization Type Rolling,Strumming,Sustained Pressure,Other Body Position Prone & L SL Comments pillow under hips for comfort. monitored for pain, MWM hip IR/ ER Manual Techniques Rib Recoil Type R Body Location L SL over 2 pillows Comments breath, slow in/out, quick in RIb recoil mobility PT-OP-T Assessment and Plan Start: 04/07/24 11:03 Freq: Status: Active Protocol: Document 05/18/24 08:23 SP (Rec: 05/18/24 09:03 SP [id number]) Physical Therapy Assessment Goals Four Impairment trunk MMT 3/5 globally w/ pain Short Term Goal (STG) Pt will improve global trunk strength to at least 4/5 MMT in order to demonstrate increased trunk stabilization and strength for work-related tasks and ADLs 05/09/24: 3+/5 MMT no increased pain STG Duration 8 weeks PROGRESSING Configuration 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 Goal (LTG) Pt will be educated on body mechanics with lifting and demonstrate core bracing while lifting small loads for at least 5/10 reps without cueing and back pain <5/10 in order to demonstrate improved strength for work-related tasks and ADLs LTG Duration 12 weeks Three Impairment JOHN 42% impaired w/ ADLs/work tasks Configuration Analyst Goal (LTG) Pt will improve JOHN impairment to <25% in order to demonstrate improvements in sitting, standing, ambulation, and lifting tolerance 05/09/24: LTG Duration 12 weeks Two Impairment trunk ROM impaired d/t pain Short Term Goal (STG) Pt will improve trunk flexion AROM > 75% without increase in low back pain in order to be able to pick objects from floor and lift objects for work 05/09/24: 50% flexion today s/ p stretching calfs/ hip flexors STG Duration 8 weeks Nursing Home Goal (LTG) Pt will be able to stand erect with back pain <5/10 during work tasks in order to demonstrate improved symptom management and trunk ROM LTG Duration 12 weeks One Impairment not performing HEP Nursing Home Goal (LTG) Pt will be IND with HEP at least 3x/wk in order to maximize progression with PT and transition to maintenance program upon discharge 05/09/24: pt performing HEP periodically LTG Duration 12 weeks Assessment Summary Assessment Pt improved LS and rib mobility post manual and stretching. Demonstrated painfree LS and hip mobility. Trialed prone on elbows with slight back tension but not pain, discussed not pushing into excessive range due to adding more pressure on spine causing radicular symptoms. Cues for segmental pelvic rocking tailbone lift/lower emphasis helped. Physical Therapy Plan Frequency and Duration Frequency of Treatment 2x/Week Duration of treatment (weeks) 12 Plan of Care Start Date 04/10/24 Plan of Care End Date 07/07/24 Therapeutic Interventions Therapeutic Interventions Balance Training,Gait Training ,Home Exercise Program,Joint Mobilizations,Manual Therapy, Neuromuscular Re-education, Orthotic/Prosthetic Management ,Patient/Caregiver Education, Self-Care/Home Management, Sensory Integration,Soft Tissue Mobilization,Taping, Therapeutic Activities, Therapeutic Exercises Modalities Cold Pack/Ice Massage,Electric Stimulation,Hot Packs, Traction- Mechanical, Ultrasound Other Referrals/Consults Referrals/Consults Recommended JOHN 62% impairment, an increase (worse) from evaluation at 42% impairment. Pt would likely benefit from further referral to data modeling specialist and for more advanced imaging (MRI) due to minimal changes in symptoms. Next Visit Focus/Plan Next Note Type Treatment Note Next Visit Plan REcheck mini prone ext, segmental bridge for ext training. Standing mobilization lumbar against support if slade and standing hip ext/abd. Depending on pt improvement, recommend trialing rows, lat pull downs, carries, and squat/leg press/ STS. manual tx including lumbar traction as needed
--- NOTE | 2024-05-26 09:04 | PT.OTN ---
Current Diagnoses Stiffness of right hip, not elsewhere classified (05/26/24) Stiffness of left hip, not elsewhere classified (05/26/24) Radiculopathy, lumbar region (05/26/24) Low back pain, unspecified (05/26/24) Weakness (05/26/24) Physical Therapy Treatment Note PT-OP-A Visit Information Start: 04/07/24 11:03 Freq: Status: Active Protocol: Document 05/26/24 08:24 SP (Rec: 05/26/24 09:06 SP [id number]) Out-Patient Physical Therapy Visit Information Visit Information Visit Type Treatment Note Visit Note 24 visits max Visit Start Time 08:24 Visit Stop Time 09:04 Visit Number 03/23 Number of MAITRE D Visits 2 Evaluation Information Evaluation Date 04/10/24 PT-OP-B Current Condition Start: 04/07/24 11:03 Freq: Status: Active Protocol: Document 04/10/24 09:04 NM (Rec: 04/10/24 09:49 NM [id number]) Current Condition History of Current Condition Current Complaints pain, difficulty w/ mobility and transfers History of Current Condition Pt presents iwth low back pain , radiates into RLE. He has had this before 1-2x in past several years ago, but this is worst episode. He got imaging performed, and doctor thinks DDD. Pt reports that his back has been bothering him for 1.5 months. Denies JAXSON, states slow onset. 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 He has a lot of variation between difficulty getting around to no difficulty with walking; demos strong forward trunk flexion pattern. Pt reports that 20 years ago, his initial JAXSON was lifting a wood stove. He has done several home stretching to help. However, reports that it takes a while to heal (4 months) but just a long time. 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 He has pain with straightening his leg R (and L), low back ext in sitting and standing. 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 PT-OP-F Manual Assessment Start: 04/07/24 11:03 Freq: Status: Active Protocol: Document 04/10/24 09:04 NM (Rec: 04/10/24 09:49 NM [id number]) Manual Assessments Soft Tissue Assessment Soft Tissue Mobility Assessment Hypertrophy of B lumbar paraspinals and glutes, tenderness to palpation Joint Mobility Assessment Joint Mobility Assessment Hypomobility of thoracic and lumbar spine especially with PA springing of lower lumbar spine and R PSIS, also tender Mild curves of thoracic and lumbar spine to R side PT-OP-G Mobility & Gait Start: 04/07/24 11:03 Freq: Status: Active Protocol: Document 04/10/24 09:04 NM (Rec: 04/10/24 17:07 NM [id number]) OP Gait Assessment Gait Gait Assistance Required: Standby Assistance Distance (Feet) 150 Gait Deviations General Gait Pattern Antalgic,Flexed Trunk,Lateral Trunk Lean,Narrow Based Gait Factors Limiting Gait Function Factors Limiting Gait Function Decreased Activity Tolerance, Decreased Sensation,Decreased Strength,Limited Range of Motion,Pain Comments Gait Comments Pt demos increased trunk flexion with slight R sided lean with gait. Antalgic especially with advancing and extending RLE PT-OP-H Neuro Start: 04/07/24 11:03 Freq: Status: Active Protocol: Document 04/17/24 12:59 NM (Rec: 04/17/24 15:09 NM [id number]) Sensation Evaluation Comments Summary Comments BLE intact to light touch sensation equally. Decreased sensation to dull/sharp on RLE at thigh Deep Tendon Reflex & Clonus Assessment Deep Tendon Reflex Bilateral Achilles Deep Tendon Reflex 1+ Diminished Bilateral Patellar Deep Tendon Reflex 1+ Diminished PT-OP-J Posture/Palpation/Skin Start: 04/07/24 11:03 Freq: Status: Active Protocol: Document 04/10/24 09:04 NM (Rec: 04/10/24 17:07 NM [id number]) Posture Evaluation Position Standing Head/C-Spine Posture Forward Head L-Spine Posture Flattened,Decreased Lordosis, Fixed Scoliosis on (R) Shoulder Posture (L) Rounded,(R) Rounded Pelvis Posture Posterior Tilted,(R) Rotated Anterior,(R) Iliac Crest Superior Weight Distribution Weight Shifted Left Knee Posture (L) Genu Valgus,(R) Genu Valgus Comments Posture Comments Pain with truncal extension. Demos elevation of R pelvis and L lateral trunk shift Palpation Assessment Location lumbar spine Palpation Details Tenderness along lower lumbar spine R>L, midline and transverse processes; tenderness along R SIJ/PSIS, worse with PA springing of R SIJ PT-OP-K Range of Motion Start: 04/07/24 11:03 Freq: Status: Active Protocol: Document 05/09/24 09:46 NM (Rec: 05/09/24 10:43 NM [id number]) Lumbar Spine Range of Motion Lumbar Spine Active Percentage Flexion 75 Extension 10 Rotation Left 50 Rotation Right 50 Lateral Flexion Left 100 Lateral Flexion Right 100 Comments pain with ext, R LF 05/09/24: 50% flex PT-OP-L Special Tests Start: 04/07/24 11:03 Freq: Status: Active Protocol: Document 04/10/24 09:04 NM (Rec: 04/10/24 09:49 NM [id number]) Special Tests Lumbar Spine Special Tests Slump Test Results + Comments also pain on R side w/ L test Straight Leg Raise Test Results + Comments also pain in R side w/ L test distraction Test Results + Comments mild relief but no change symptoms in RLE katz/quadrant Test Results + Comments R sided PT-OP-M Strength Start: 04/07/24 11:03 Freq: Status: Active Protocol: Document 05/09/24 09:46 NM (Rec: 05/09/24 10:43 NM [id number]) Trunk Strength Trunk Manual Muscle Testing Flexion 3+ Fair+ Extension 3+ Fair+ Rotation Left 3+ Fair+ Rotation Right 3+ Fair+ Lateral Flexion Left 3+ Fair+ Lateral Flexion Right 3+ Fair+ Comments pain with resisted testing PT-OP-Q Treatments Start: 04/07/24 11:03 Freq: Status: Active Protocol: Document 05/26/24 08:24 SP (Rec: 05/26/24 09:06 SP [id number]) Therapeutic Exercises Supine Exercises bridge Supine Exercise Name retrialed in PT Side bilateral Resistance feet on table Equipment Used segmental w/ ppt and small ROM , ball between knees Reps/Minutes x10 reps Comments painfree, cues TA & pelvis mobility- segmental movement Prone Exercises prone on elbows Prone Exercise Name mini lift reviewed (continues decline HO) Side bilateral Equipment Used pillow under hips Reps/Minutes 30 x4 reps Comments cued slow pnfree motion- only light tension in LS reported no pain Sitting Exercises maltese ball Sitting Exercise Name 1. pull down 2. Hold down /c july Equipment Used 65cm tball Reps/Minutes 1. 2x10 2. Hold mini march x10 alternating Comments cued chest lift, neutral postural & pelvic alignment Therapeutic Activity Therapeutic Activity body mechanics Name 1. squatting 2. sweeping/ mopping Reps/Minutes 1. 10# DB (daughter 25#) 2. 10 reps Comments 1. cued chest lift, buttocks back improved mechanics squat and hip hinge 2. chest lift CS retract neutral wt shift between BLEs Manual Therapy Treatment Consent Patient gave verbal consent for manual Yes treatment Soft Tissue Mobilization trunk Body Location B ES (SL) , QL Mobilization Type Rolling,Strumming,Sustained Pressure,Other Body Position prone over pillow then SL Comments pillow under hips for comfort. monitored for pain, MWM hip IR/ ER, PNF pelvis anterior elevation <> posterior depression PT-OP-T Assessment and Plan Start: 04/07/24 11:03 Freq: Status: Active Protocol: Document 05/26/24 08:24 SP (Rec: 05/26/24 09:06 SP [id number]) Physical Therapy Assessment Goals Four Impairment trunk MMT 3/5 globally w/ pain Short Term Goal (STG) Pt will improve global trunk strength to at least 4/5 MMT in order to demonstrate increased trunk stabilization and strength for work-related tasks and ADLs 05/09/24: 3+/5 MMT no increased pain STG Duration 8 weeks PROGRESSING Longterm Goal (LTG) Pt will be educated on body mechanics with lifting and demonstrate core bracing while lifting small loads for at least 5/10 reps without cueing and back pain <5/10 in order to demonstrate improved strength for work-related tasks and ADLs LTG Duration 12 weeks Three Impairment JOHN 42% impaired w/ ADLs/work tasks Longterm Goal (LTG) Pt will improve JOHN impairment to <25% in order to demonstrate improvements in sitting, standing, ambulation, and lifting tolerance 05/09/24: LTG Duration 12 weeks Two Impairment trunk ROM impaired d/t pain Short Term Goal (STG) Pt will improve trunk flexion AROM > 75% without increase in low back pain in order to be able to pick objects from floor and lift objects for work 05/09/24: 50% flexion today s/ p stretching calfs/ hip flexors STG Duration 8 weeks Longterm Goal (LTG) Pt will be able to stand erect with back pain <5/10 during work tasks in order to demonstrate improved symptom management and trunk ROM LTG Duration 12 weeks One Impairment not performing HEP Longterm Goal (LTG) Pt will be IND with HEP at least 3x/wk in order to maximize progression with PT and transition to maintenance program upon discharge 05/09/24: pt performing HEP periodically LTG Duration 12 weeks Assessment Summary Assessment Pt increased lumbar mobility post manual. Continued education for TA, neutral pelvis and back alignment during small painfree range mobility during bridge supine, prone on elbows, sitting on tball pull down and marching added today with . Cues for slower pacing movement allowed better control. Pt reports will have a follow up with physician soon and may ask for further injection to back for pain relief. End tx initiated body mechanics training with ed for spinal alignment, TA draw in, hip hinge squatting, wt shifting between BLEs for support ADLs and lifting 1 y/o daughter home. Physical Therapy Plan Frequency and Duration Frequency of Treatment 2x/Week Duration of treatment (weeks) 12 Plan of Care Start Date 04/10/24 Plan of Care End Date 07/07/24 Therapeutic Interventions Therapeutic Interventions Balance Training,Gait Training ,Home Exercise Program,Joint Mobilizations,Manual Therapy, Neuromuscular Re-education, Orthotic/Prosthetic Management ,Patient/Caregiver Education, Self-Care/Home Management, Sensory Integration,Soft Tissue Mobilization,Taping, Therapeutic Activities, Therapeutic Exercises Modalities Cold Pack/Ice Massage,Electric Stimulation,Hot Packs, Traction- Mechanical, Ultrasound Other Referrals/Consults Referrals/Consults Recommended JOHN 62% impairment, an increase (worse) from evaluation at 42% impairment. Pt would likely benefit from further referral to floral specialist and for more advanced imaging (MRI) due to minimal changes in symptoms. Next Visit Focus/Plan Next Note Type Treatment Note Next Visit Plan REcheck mini prone ext, segmental bridge for ext training, seated tball pull down and hold marching. PT POC: progress Standing mobilization lumbar against support if slade and standing hip ext/abd. Depending on pt improvement, recommend trialing rows, lat pull downs, carries, and squat/leg press/ STS. Progress work activities see Subjective mentioned 05/26. manual tx including lumbar traction as needed
--- NOTE | 2024-06-07 09:07 | PT.OTN ---
Current Diagnoses Stiffness of right hip, not elsewhere classified (06/07/24) Stiffness of left hip, not elsewhere classified (06/07/24) Radiculopathy, lumbar region (06/07/24) Low back pain, unspecified (06/07/24) Weakness (06/07/24) Physical Therapy Treatment Note PT-OP-A Visit Information Start: 04/07/24 11:03 Freq: Status: Active Protocol: Document 06/07/24 08:17 SP (Rec: 06/07/24 09:08 SP [id number]) Out-Patient Physical Therapy Visit Information Visit Information Visit Type Treatment Note Visit Note 24 visits max Visit Start Time 08:17 Visit Stop Time 09:07 Visit Number 04/23 Number of MANAGER MALL Visits 3 Evaluation Information Evaluation Date 04/10/24 PT-OP-B Current Condition Start: 04/07/24 11:03 Freq: Status: Active Protocol: Document 04/10/24 09:04 NM (Rec: 04/10/24 09:49 NM [id number]) Current Condition History of Current Condition Current Complaints pain, difficulty w/ mobility and transfers History of Current Condition Pt presents iwth low back pain , radiates into RLE. He has had this before 1-2x in past several years ago, but this is worst episode. He got imaging performed, and doctor thinks DDD. Pt reports that his back has been bothering him for 1.5 months. Denies JAXSON, states slow onset. 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 He has a lot of variation between difficulty getting around to no difficulty with walking; demos strong forward trunk flexion pattern. Pt reports that 20 years ago, his initial JAXSON was lifting a wood stove. He has done several home stretching to help. However, reports that it takes a while to heal (4 months) but just a long time. 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 He has pain with straightening his leg R (and L), low back ext in sitting and standing. Prior Treatments and Tests Lumbar spine x ray 02/2024- impression: degenerative changes as described above ( mild dextroscoliosis of lumbar spine, straightening of lumbar spine, vertebral body heights well maintained, multilevel degenerative disease of the lumbar spine most pronounced at L1-2, mild lower lumbar facet arthropathy ) PT-OP-C Subjective Start: 04/07/24 11:03 Freq: Status: Active Protocol: Document 06/07/24 08:17 SP (Rec: 06/07/24 09:08 SP [id number]) OP-PT Subjective Patient Comments Patient Comments Pt reports feeling 20% better and overall improving. Incorporating body mechanics learned. He reports doing light floor stretches and walking. He getting alot fair amount bed rest especially toward end of the day. PT-OP-F Manual Assessment Start: 04/07/24 11:03 Freq: Status: Active Protocol: Document 04/10/24 09:04 NM (Rec: 04/10/24 09:49 NM [id number]) Manual Assessments Soft Tissue Assessment Soft Tissue Mobility Assessment Hypertrophy of B lumbar paraspinals and glutes, tenderness to palpation Joint Mobility Assessment Joint Mobility Assessment Hypomobility of thoracic and lumbar spine especially with PA springing of lower lumbar spine and R PSIS, also tender Mild curves of thoracic and lumbar spine to R side PT-OP-G Mobility & Gait Start: 04/07/24 11:03 Freq: Status: Active Protocol: Document 04/10/24 09:04 NM (Rec: 04/10/24 17:07 NM [id number]) OP Gait Assessment Gait Gait Assistance Required: Standby Assistance Distance (Feet) 150 Gait Deviations General Gait Pattern Antalgic,Flexed Trunk,Lateral Trunk Lean,Narrow Based Gait Factors Limiting Gait Function Factors Limiting Gait Function Decreased Activity Tolerance, Decreased Sensation,Decreased Strength,Limited Range of Motion,Pain Comments Gait Comments Pt demos increased trunk flexion with slight R sided lean with gait. Antalgic especially with advancing and extending RLE PT-OP-H Neuro Start: 04/07/24 11:03 Freq: Status: Active Protocol: Document 04/17/24 12:59 NM (Rec: 04/17/24 15:09 NM [id number]) Sensation Evaluation Comments Summary Comments BLE intact to light touch sensation equally. Decreased sensation to dull/sharp on RLE at thigh Deep Tendon Reflex & Clonus Assessment Deep Tendon Reflex Bilateral Achilles Deep Tendon Reflex 1+ Diminished Bilateral Patellar Deep Tendon Reflex 1+ Diminished PT-OP-J Posture/Palpation/Skin Start: 04/07/24 11:03 Freq: Status: Active Protocol: Document 04/10/24 09:04 NM (Rec: 04/10/24 17:07 NM [id number]) Posture Evaluation Position Standing Head/C-Spine Posture Forward Head L-Spine Posture Flattened,Decreased Lordosis, Fixed Scoliosis on (R) Shoulder Posture (L) Rounded,(R) Rounded Pelvis Posture Posterior Tilted,(R) Rotated Anterior,(R) Iliac Crest Superior Weight Distribution Weight Shifted Left Knee Posture (L) Genu Valgus,(R) Genu Valgus Comments Posture Comments Pain with truncal extension. Demos elevation of R pelvis and L lateral trunk shift Palpation Assessment Location lumbar spine Palpation Details Tenderness along lower lumbar spine R>L, midline and transverse processes; tenderness along R SIJ/PSIS, worse with PA springing of R SIJ PT-OP-K Range of Motion Start: 04/07/24 11:03 Freq: Status: Active Protocol: Document 05/09/24 09:46 NM (Rec: 05/09/24 10:43 NM [id number]) Lumbar Spine Range of Motion Lumbar Spine Active Percentage Flexion 75 Extension 10 Rotation Left 50 Rotation Right 50 Lateral Flexion Left 100 Lateral Flexion Right 100 Comments pain with ext, R LF 05/09/24: 50% flex PT-OP-L Special Tests Start: 04/07/24 11:03 Freq: Status: Active Protocol: Document 04/10/24 09:04 NM (Rec: 04/10/24 09:49 NM [id number]) Special Tests Lumbar Spine Special Tests Slump Test Results + Comments also pain on R side w/ L test Straight Leg Raise Test Results + Comments also pain in R side w/ L test distraction Test Results + Comments mild relief but no change symptoms in RLE katz/quadrant Test Results + Comments R sided PT-OP-M Strength Start: 04/07/24 11:03 Freq: Status: Active Protocol: Document 05/09/24 09:46 NM (Rec: 05/09/24 10:43 NM [id number]) Trunk Strength Trunk Manual Muscle Testing Flexion 3+ Fair+ Extension 3+ Fair+ Rotation Left 3+ Fair+ Rotation Right 3+ Fair+ Lateral Flexion Left 3+ Fair+ Lateral Flexion Right 3+ Fair+ Comments pain with resisted testing PT-OP-Q Treatments Start: 04/07/24 11:03 Freq: Status: Active Protocol: Document 06/07/24 08:17 SP (Rec: 06/07/24 09:08 SP [id number]) Therapeutic Exercises Standing Exercises step ups Standing Exercise Name added to HEP: repeated 1 side time /c HO Side bilateral Resistance AROM Equipment Used 8 step, no UE support Reps/Minutes x10 each side Comments cued midline posture, glut press, level pelvis- feels ok . Toe lifts Standing Exercise Name DF forefoot lift: added to HEP /c HO Side bilateral Resistance AROM Equipment Used back to wall Reps/Minutes x10 reps Comments nhi together for posterior chain flexiblity and DF strengthening up posture Lift Standing Exercise Name Trialed in PT Resistance 10# DB feels fine >25 #DB glide down thighs then below knees Reps/Minutes x5 reps ed body mechanics picking up daughter Comments Cuing for chest lift/rhomboid fac/soft knee> knee flex/hip hinge butt back Suitcase carry Standing Exercise Name Added to HEP Side bilateral Resistance 1# DB>25# DB Reps/Minutes 40 ft x2 lengths Comments cued level shld & pelvis, TA and rhomboid fac stable trunk- feels fine calf stretch Standing Exercise Name back to wall DF Manual Therapy Treatment Consent Patient gave verbal consent for manual Yes treatment Soft Tissue Mobilization trunk Body Location B ES (SL) , QL Mobilization Type Rolling,Strumming,Sustained Pressure,Other Body Position SL Comments STMs, MWM hip elevation, PNF anterior elevation/posterior depresssion LEs Body Location B Piriformis, Glut med, TFL, HS Mobilization Type Instrument Assisted,Rolling, Strumming,Sustained Pressure Body Position Prone Comments PA prox femur /c IR/ ER Self-Care/Home Management Treatment Education Patient Education Body Mechanics,Home Exercise Program,Posture,Safety Other Education Ed carryover core and strengthening HEP tball, new added body mechanics picking up child. Cues today for proper form. PT-OP-T Assessment and Plan Start: 04/07/24 11:03 Freq: Status: Active Protocol: Document 06/07/24 08:17 SP (Rec: 06/07/24 09:08 SP [id number]) Physical Therapy Assessment Goals Four Impairment trunk MMT 3/5 globally w/ pain Short Term Goal (STG) Pt will improve global trunk strength to at least 4/5 MMT in order to demonstrate increased trunk stabilization and strength for work-related tasks and ADLs 05/09/24: 3+/5 MMT no increased pain STG Duration 8 weeks PROGRESSING Ward Assistant Goal (LTG) Pt will be educated on body mechanics with lifting and demonstrate core bracing while lifting small loads for at least 5/10 reps without cueing and back pain <5/10 in order to demonstrate improved strength for work-related tasks and ADLs LTG Duration 12 weeks Three Impairment JOHN 42% impaired w/ ADLs/work tasks Ward Assistant Goal (LTG) Pt will improve JOHN impairment to <25% in order to demonstrate improvements in sitting, standing, ambulation, and lifting tolerance 05/09/24: LTG Duration 12 weeks Two Impairment trunk ROM impaired d/t pain Short Term Goal (STG) Pt will improve trunk flexion AROM > 75% without increase in low back pain in order to be able to pick objects from floor and lift objects for work 05/09/24: 50% flexion today s/ p stretching calfs/ hip flexors STG Duration 8 weeks Jail Goal (LTG) Pt will be able to stand erect with back pain <5/10 during work tasks in order to demonstrate improved symptom management and trunk ROM LTG Duration 12 weeks One Impairment not performing HEP Ward Assistant Goal (LTG) Pt will be IND with HEP at least 3x/wk in order to maximize progression with PT and transition to maintenance program upon discharge 05/09/24: pt performing HEP periodically LTG Duration 12 weeks Assessment Summary Assessment Pt improved lumbar and posterior chain mobility post manual and active DF. Progressed resist carrying and body mechanics hip hinge and step ups today for progression funcitonal mobility with good feedback response. Cues for chest lift and hip hinge body mechanics for safe back health . Reinterated importance of core HEP progressing home for back health. Next tx, trial lunges, squats. Physical Therapy Plan Frequency and Duration Frequency of Treatment 2x/Week Duration of treatment (weeks) 12 Plan of Care Start Date 04/10/24 Plan of Care End Date 07/07/24 Therapeutic Interventions Therapeutic Interventions Balance Training,Gait Training ,Home Exercise Program,Joint Mobilizations,Manual Therapy, Neuromuscular Re-education, Orthotic/Prosthetic Management ,Patient/Caregiver Education, Self-Care/Home Management, Sensory Integration,Soft Tissue Mobilization,Taping, Therapeutic Activities, Therapeutic Exercises Modalities Cold Pack/Ice Massage,Electric Stimulation,Hot Packs, Traction- Mechanical, Ultrasound Other Referrals/Consults Referrals/Consults Recommended JOHN 62% impairment, an increase (worse) from evaluation at 42% impairment. Pt would likely benefit from further referral to technical information specialist and for more advanced imaging (MRI) due to minimal changes in symptoms. Next Visit Focus/Plan Next Note Type Treatment Note Next Visit Plan REcheck standign step ups, suitcase carry, revisit hip hinge body mechanics and seated tball pull downs and importance of carryover strengthening HEP. PT POC: progress Standing mobilization lumbar against support if slade and standing hip ext/abd. Depending on pt improvement, recommend trialing rows, lat pull downs, carries, and squat/leg press/ STS. Progress work activities see Subjective mentioned 05/26. manual tx including lumbar traction as needed
--- NOTE | 2024-07-06 11:52 | PT.OPDS ---
Current Diagnoses Stiffness of right hip, not elsewhere classified (06/07/24) Stiffness of left hip, not elsewhere classified (06/07/24) Radiculopathy, lumbar region (06/07/24) Low back pain, unspecified (06/07/24) Weakness (06/07/24) Visit Care Team Role Provider Type Lex Ramirez MD Attending Provider Physician Family Provider Primary Care Provider Referring Provider Specialty: Family Practice Address: [address] [place] [address], [address], [facility] Email: [email or web address] Visit Number Visit Number 04/23 Discharge Summary PT-OP-B Current Condition Start: 04/07/24 11:03 Freq: Status: Active Protocol: Document 04/10/24 09:04 NM (Rec: 04/10/24 09:49 NM [id number]) Current Condition History of Current Condition Current Complaints pain, difficulty w/ mobility and transfers History of Current Condition Pt presents iwth low back pain , radiates into RLE. He has had this before 1-2x in past several years ago, but this is worst episode. He got imaging performed, and doctor thinks DDD. Pt reports that his back has been bothering him for 1.5 months. Denies JAXSON, states slow onset. 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 He has a lot of variation between difficulty getting around to no difficulty with walking; demos strong forward trunk flexion pattern. Pt reports that 20 years ago, his initial JAXSON was lifting a wood stove. He has done several home stretching to help. However, reports that it takes a while to heal (4 months) but just a long time. 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 He has pain with straightening his leg R (and L), low back ext in sitting and standing. Prior Treatments and Tests Lumbar spine x ray 02/2024- impression: degenerative changes as described above ( mild dextroscoliosis of lumbar spine, straightening of lumbar spine, vertebral body heights well maintained, multilevel degenerative disease of the lumbar spine most pronounced at L1-2, mild lower lumbar facet arthropathy ) PT-OP-C Subjective Start: 04/07/24 11:03 Freq: Status: Active Protocol: Document 06/07/24 08:17 SP (Rec: 06/07/24 09:08 SP [id number]) OP-PT Subjective Patient Comments Patient Comments Pt reports feeling 20% better and overall improving. Incorporating body mechanics learned. He reports doing light floor stretches and walking. He getting alot fair amount bed rest especially toward end of the day. PT-OP-F Manual Assessment Start: 04/07/24 11:03 Freq: Status: Active Protocol: Document 04/10/24 09:04 NM (Rec: 04/10/24 09:49 NM [id number]) Manual Assessments Soft Tissue Assessment Soft Tissue Mobility Assessment Hypertrophy of B lumbar paraspinals and glutes, tenderness to palpation Joint Mobility Assessment Joint Mobility Assessment Hypomobility of thoracic and lumbar spine especially with PA springing of lower lumbar spine and R PSIS, also tender Mild curves of thoracic and lumbar spine to R side PT-OP-G Mobility & Gait Start: 04/07/24 11:03 Freq: Status: Active Protocol: Document 04/10/24 09:04 NM (Rec: 04/10/24 17:07 NM [id number]) OP Gait Assessment Gait Gait Assistance Required: Standby Assistance Distance (Feet) 150 Gait Deviations General Gait Pattern Antalgic,Flexed Trunk,Lateral Trunk Lean,Narrow Based Gait Factors Limiting Gait Function Factors Limiting Gait Function Decreased Activity Tolerance, Decreased Sensation,Decreased Strength,Limited Range of Motion,Pain Comments Gait Comments Pt demos increased trunk flexion with slight R sided lean with gait. Antalgic especially with advancing and extending RLE PT-OP-H Neuro Start: 04/07/24 11:03 Freq: Status: Active Protocol: Document 04/17/24 12:59 NM (Rec: 04/17/24 15:09 NM [id number]) Sensation Evaluation Comments Summary Comments BLE intact to light touch sensation equally. Decreased sensation to dull/sharp on RLE at thigh Deep Tendon Reflex & Clonus Assessment Deep Tendon Reflex Bilateral Achilles Deep Tendon Reflex 1+ Diminished Bilateral Patellar Deep Tendon Reflex 1+ Diminished PT-OP-J Posture/Palpation/Skin Start: 04/07/24 11:03 Freq: Status: Active Protocol: Document 04/10/24 09:04 NM (Rec: 04/10/24 17:07 NM [id number]) Posture Evaluation Position Standing Head/C-Spine Posture Forward Head L-Spine Posture Flattened,Decreased Lordosis, Fixed Scoliosis on (R) Shoulder Posture (L) Rounded,(R) Rounded Pelvis Posture Posterior Tilted,(R) Rotated Anterior,(R) Iliac Crest Superior Weight Distribution Weight Shifted Left Knee Posture (L) Genu Valgus,(R) Genu Valgus Comments Posture Comments Pain with truncal extension. Demos elevation of R pelvis and L lateral trunk shift Palpation Assessment Location lumbar spine Palpation Details Tenderness along lower lumbar spine R>L, midline and transverse processes; tenderness along R SIJ/PSIS, worse with PA springing of R SIJ PT-OP-K Range of Motion Start: 04/07/24 11:03 Freq: Status: Active Protocol: Document 05/09/24 09:46 NM (Rec: 05/09/24 10:43 NM [id number]) Lumbar Spine Range of Motion Lumbar Spine Active Percentage Flexion 75 Extension 10 Rotation Left 50 Rotation Right 50 Lateral Flexion Left 100 Lateral Flexion Right 100 Comments pain with ext, R LF 05/09/24: 50% flex PT-OP-L Special Tests Start: 04/07/24 11:03 Freq: Status: Active Protocol: Document 04/10/24 09:04 NM (Rec: 04/10/24 09:49 NM [id number]) Special Tests Lumbar Spine Special Tests Slump Test Results + Comments also pain on R side w/ L test Straight Leg Raise Test Results + Comments also pain in R side w/ L test distraction Test Results + Comments mild relief but no change symptoms in RLE katz/quadrant Test Results + Comments R sided PT-OP-M Strength Start: 04/07/24 11:03 Freq: Status: Active Protocol: Document 05/09/24 09:46 NM (Rec: 05/09/24 10:43 NM [id number]) Trunk Strength Trunk Manual Muscle Testing Flexion 3+ Fair+ Extension 3+ Fair+ Rotation Left 3+ Fair+ Rotation Right 3+ Fair+ Lateral Flexion Left 3+ Fair+ Lateral Flexion Right 3+ Fair+ Comments pain with resisted testing PT-OP-T Assessment and Plan Start: 04/07/24 11:03 Freq: Status: Active Protocol: Document 07/06/24 11:49 NM (Rec: 07/06/24 11:52 NM [id number]) Physical Therapy Assessment Goals Four Impairment trunk MMT 3/5 globally w/ pain Short Term Goal (STG) Pt will improve global trunk strength to at least 4/5 MMT in order to demonstrate increased trunk stabilization and strength for work-related tasks and ADLs 05/09/24: 3+/5 MMT no increased pain STG Duration 8 weeks PROGRESSING [employer]er Drafter Goal (LTG) Pt will be educated on body mechanics with lifting and demonstrate core bracing while lifting small loads for at least 5/10 reps without cueing and back pain <5/10 in order to demonstrate improved strength for work-related tasks and ADLs LTG Duration 12 weeks Three Impairment JOHN 42% impaired w/ ADLs/work tasks Cad [employer]er Drafter Goal (LTG) Pt will improve JOHN impairment to <25% in order to demonstrate improvements in sitting, standing, ambulation, and lifting tolerance 05/09/24: LTG Duration 12 weeks Two Impairment trunk ROM impaired d/t pain Short Term Goal (STG) Pt will improve trunk flexion AROM > 75% without increase in low back pain in order to be able to pick objects from floor and lift objects for work 05/09/24: 50% flexion today s/ p stretching calfs/ hip flexors STG Duration 8 weeks Cad Designer [employer]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 At last progress note, pt not progressing toward goals or symptom management. However, pt progressing with functional strengthening and body mechanics training with good tolerance per [employer] notes. Physical Therapy Plan Frequency and Duration Frequency of Treatment 2x/Week Duration of treatment (weeks) 12 Plan of Care Start Date 04/10/24 Plan of Care End Date 07/07/24 Therapeutic Interventions Therapeutic Interventions Balance Training,Gait Training ,Home Exercise Program,Joint Mobilizations,Manual Therapy, Neuromuscular Re-education, Orthotic/Prosthetic Management ,Patient/Caregiver Education, Self-Care/Home Management, Sensory Integration,Soft Tissue Mobilization,Taping, Therapeutic Activities, Therapeutic Exercises Modalities Cold Pack/Ice Massage,Electric Stimulation,Hot Packs, Traction- Mechanical, Ultrasound Other Referrals/Consults Referrals/Consults Recommended JOHN 62% impairment, an increase (worse) from evaluation at 42% impairment. Pt would likely benefit from further referral to outdoor recreation specialist and for more advanced imaging (MRI) due to minimal changes in symptoms. Discharge Physical Therapy Discharge Reasons Patient Request Discharge Comments Pt called on 06/19/24, reporting that he was doing better and requested to discharge from PT. Pt cancelled all remaining appt. Pt will be discharged at his request and will need new referral to return if needed. Next Visit Focus/Plan Next Note Type Discharge Summary Next Visit Plan discharge from PT
== END 2024-07-07 12:30 | disposition home or self-care (01) ==
LOC: PHYS 08:15
PROVIDERS: Family Provider Family Medicine; PCP Family Medicine; Referring Provider Family Medicine; Visit Provider Family Medicine
DX: M54.50 Low back pain, unspecified (principal); M54.16 Radiculopathy, lumbar region; R53.1 Weakness; M25.651 Stiffness of right hip, not elsewhere classified; M25.652 Stiffness of left hip, not elsewhere classified
CPT/HCPCS: 97110; 97140; 97161; 97530; 97535

== ENCOUNTER → 2024-06-13 12:17 | Outpatient (CLI) | payer OTHER, SELFPAY ==
--- NOTE | 2024-06-13 12:23 | DI.MRI.S_ITS ---
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 In cases with scoliosis, additional coronal T2 fast spin echo may be performed. COMPARISON: [facility], CR, XR LUMBAR SPINE 2-3V, 03/21/2024, 11:30. FINDINGS: Image quality: Excellent. Alignment and Curvature: There is normal bony alignment. Bone Marrow: Marrow is of normal overall signal. No acute vertebral body compression fractures. Spinal Cord: Conus medullaris terminates at the L1 level. Visualized cord demonstrates normal signal and size. Paraspinous Soft Tissues: No paravertebral masses. T12-L1: Normal appearance. L1-L2: Loss of disc signal and slight loss of disc height. Mild, diffuse disc bulge. Mild narrowing of the central canal. Mild bilateral neural foraminal narrowing. No neural compression. L2-L3: Normal appearance. L3-L4: Loss of disc signal. Mild, diffuse disc bulge. Mild narrowing of the central canal. Mild bilateral neural foraminal narrowing. No neural compression. L4-L5: Loss of disc signal. Mild, diffuse disc bulge. Mild bilateral facet hypertrophy. Mild narrowing of the central canal. Mild to moderate bilateral neural foraminal narrowing. No neural compression. Fissures in the posterior annulus. L5-S1: Loss of disc signal and slight loss of disc height. Mild, diffuse disc bulge. Mild bilateral facet hypertrophy. No central stenosis. Mild bilateral neural foraminal narrowing. No neural compression. Fissures in the posterior annulus. IMPRESSION: Multilevel degenerative disc disease. Multilevel facet arthropathy. No severe central canal stenosis. No severe neural foraminal stenosis. No neural compression. L4-L5 and L5-S1 disc annulus fissures. Dictated by: Alona Rodriguez MD, PhD on 06/13/2024 at 13:30 Approved by: Alona Rodriguez MD, PhD on 06/13/2024 at 13:32
== END ==
PROVIDERS: Family Provider Family Medicine; PCP Family Medicine; Referring Provider Family Medicine; Visit Provider Family Medicine
DX: M47.26 Other spondylosis with radiculopathy, lumbar region (principal); M51.16 Intervertebral disc disorders with radiculopathy, lumbar region; M47.27 Other spondylosis with radiculopathy, lumbosacral region; M51.17 Intervertebral disc disorders with radiculopathy, lumbosacral region
CPT/HCPCS: 72148